=== PATIENT | female | born 1970 | race Caucasian/White ===

== ENCOUNTER 2016-09-26 12:49 | Emergency (ER) | payer MEDICARE, MEDICAID ==
[2016-09-26 13:00] VITALS: BP 150/79
[2016-09-26] MEDS ORDERED: diphenhydrAMINE 50 MG/ML SDV IM ONE (13:19)
[2016-09-26] MEDS ORDERED: Ketorolac 60 MG/2 ML SDV IM ONE (13:19)
--- NOTE | 2016-09-26 13:19 | EDM.PDOC ---
ED HPI HEADACHE COMPLAINT - General Chief Complaint: Headache Stated Complaint: Headache Time Seen by Provider: 09/26/16 13:10 Source of Information: Reports: Patient, RN notes reviewed History Limitations: Reports: No limitations - History of Present Illness INITIAL COMMENTS - FREE TEXT/NARRATIVE: 46 year old female presents to the ED today with chief complaint of headache since yesterday. The pain is rated 8/10. She has not taken any pain medications for the headache. She denies photophobia or phonophobia, nausea, vomiting, vision changes, dizziness, vertigo. She has a history of vertigo but says this is different. She feels a little lightheaded at times. She denies vertigo but says "I have to keep my eyes closed or I'll vommit." She reports a cough since yesterday and intermittent chills. No known fever or body aches. - Related Data Allergies/ADRs: Allergies Allergy/AdvReac Type Severity Reaction Status Date / Time No Known Allergies Allergy Verified 05/19/16 01:29 Home Meds: Home Meds Aspirin [Halfprin] 324 mg PO DAILY 05/20/14 [History] Lisinopril 10 mg PO DAILY 05/20/14 [History] Simvastatin [Zocor] 40 mg PO QPM 05/20/14 [History] Victoza. 1.8 mg SUBCUT DAILY 05/20/14 [History] metFORMIN [Glucophage] 1,000 mg PO BIDM 05/20/14 [History] Albuterol Sulfate [Albuterol Sulfate HFA] 2 puff INH Q4H PRN 08/24/14 [History] PARoxetine HCl [Paxil] 60 mg PO DAILY 07/27/15 [History] ALPRAZolam [Xanax] 0.5 mg PO QID PRN 04/06/16 [History] Lansoprazole [Prevacid] 30 mg PO QAM #30 capsule. 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: Musculoskeletal History: Reports: Back pain, chronic Psychiatric History: Reports: Anxiety, Depression Endocrine/Metabolic History: Reports: Diabetes, type II - Past Surgical History HEENT Surgical History: Reports: Tonsillectomy GI Surgical History: Reports: Appendectomy, Cholecystectomy Female Surgical History: Reports: section, Hysterectomy, Tubal ligation Neurological Surgical History: Reports: Lumbar spine Social & Family History - Tobacco Use Smoking Status *Q: Current Every Day Smoker Years of Tobacco use: 30 Packs/Tins Daily: 1 Used Tobacco, but Quit: No Second Hand Smoke Exposure: Yes - Caffeine Use Caffeine Use: Reports: None - Alcohol Use Days Per Week of Alcohol Use: 0 - Recreational Drug Use Recreational Drug Use: No - Living Situation & Occupation Living situation: Reports: , with spouse, with family (3 kids) Occupation: unemployed ED ROS GENERAL - Review of Systems Review Of Systems: See Below Constitutional: Reports: chills, malaise. Denies: fever HEENT: Reports: No symptoms. Denies: Vertigo, Vision change Respiratory: Reports: Cough. Denies: Shortness of Breath, Sputum Cardiovascular: Reports: Lightheadedness. Denies: Chest pain GI/Abdominal: Reports: No symptoms. Denies: Abdominal pain, Diarrhea, Nausea, Vomiting Neurological: Reports: Headache. Denies: Confusion, Dizziness, Numbness, Tingling, Weakness - Physical Exam Exam: See Below Exam Limited By: No limitations General Appearance: alert, WD/WN, mild distress Eye Exam: bilateral eye: EOMI, normal inspection, PERRL Throat/Mouth: Normal inspection, Normal oropharynx Head Exam: atraumatic, normocephalic Neck: normal inspection, supple, non-tender, full range of motion Respiratory/Chest: no respiratory distress, lungs clear Cardiovascular: normal peripheral pulses, regular rate, rhythm, no murmur Neuro Exam (Abbreviated): alert, oriented, CN II-XII intact, normal cognition, no motor/sensory deficits Skin Exam: Warm, Dry, Intact Course - Vital Signs Last Recorded V/S: Last Vital Signs Temp 99.1 F 09/26/16 12:58 Pulse 105 H 09/26/16 12:58 Resp 16 09/26/16 12:58 BP 150/79 H 09/26/16 12:58 Pulse Ox 94 L 09/26/16 12:58 Orthostatic Blood Pressure [ 126/92 Standing] Orthostatic Blood Pressure [ 146/88 Supine] - Orders/Labs/Meds Orders: Active Orders 24 hr Category Date Time Status Orthostatic Vital Signs [RC] ASDIRECTED Care 09/26/16 13:19 Active Meds: Medications Discontinued Medications Generic Name Dose Route Start Last Admin Trade Name Waleska PICKETT Reason Stop Dose Admin Diphenhydramine HCl 50 mg 09/26/16 13:19 09/26/16 13:36 Benadryl IM 09/26/16 13:20 50 mg ONETIME ONE Administration Hydromorphone HCl 0.5 mg 09/26/16 14:31 09/26/16 14:37 Dilaudid IM 09/26/16 14:32 0.5 mg ONETIME ONE Administration Ketorolac Tromethamine 60 mg 09/26/16 13:19 09/26/16 13:38 Toradol IM 09/26/16 13:20 60 mg ONETIME ONE Administration - Re-Assessments/Exams Free Text/Narrative Re-Assessment/Exam: Influenza screen is negative. Patient appears to have headache related to viral illness. She was instructed on supportive care. Neuro exam is normal and therefore imaging is not indicated at this time. Initial pain management included Toradol and Benadryl for the headache. She reported no relief in symptoms. She was then treated with 0.5mg of Dilaudid IM. She will be discharged home with viral illness supportive care instructions. Discharge instructions as documented. She has a family member here to drive her home. Departure - Departure Time of Disposition: 14:34 Disposition: Home, Self-Care 01 Condition: good Clinical Impression: Viral illness Headache Qualifiers: Headache type: unspecified Headache chronicity pattern: acute headache Intractability: not intractable Qualified Code(s): R51 - Headache Instructions: General Headache Without Cause Referrals: Nishi Farley PA-C [Primary Care Provider] - Forms: ED Department Discharge Additional Instructions: Drink plenty of fluids Tylenol 1000mg every 8 hours as needed for pain or fever Aleve 1 tab twice a day as needed for pain not relieved by Tylenol Return to ER with worsening of symptoms or additional concerns No driving today due to sedating medications given in the ED. - My Orders Last 24 Hours: My Active Orders 09/26/16 13:19 Orthostatic Vital Signs [RC] ASDIRECTED - Assessment/Plan Last 24 Hours: My Active Orders 09/26/16 13:19 Orthostatic Vital Signs [RC] ASDIRECTED
[2016-09-26] MEDS ORDERED: HYDROmorphone 0.5 MG/0.5 ML Syringe IM ONE (14:31)
== END 2016-09-26 14:50 | disposition home or self-care (01) ==
LOC: JD.ED 12:49
DX: R51 Headache (principal); B34.9 Viral infection, unspecified; Z79.82 Long term (current) use of aspirin; Z79.899 Other long term (current) drug therapy; E11.9 Type 2 diabetes mellitus without complications; Z79.84 Long term (current) use of oral hypoglycemic drugs; I10 Essential (primary) hypertension; E78.00 Pure hypercholesterolemia, unspecified; K21.9 Gastro-esophageal reflux disease without esophagitis; F32.9 Major depressive disorder, single episode, unspecified; F41.9 Anxiety disorder, unspecified; G89.29 Other chronic pain; M54.9 Dorsalgia, unspecified; F17.200 Nicotine dependence, unspecified, uncomplicated
CPT/HCPCS: 87804; 96372; 99284; J1170; J1200; J1885

== ENCOUNTER 2017-03-16 08:08 | Emergency (ER) | payer MEDICARE, MEDICAID ==
--- NOTE | 2017-03-16 08:20 | EDM.PDOC ---
ED HPI GENERAL MEDICAL PROBLEM - General Chief Complaint: Back Pain or Injury Stated Complaint: BACK PAIN Time Seen by Provider: 03/16/17 08:19 Source of Information: Reports: Patient History Limitations: Reports: No Limitations - History of Present Illness INITIAL COMMENTS - FREE TEXT/NARRATIVE: Patient states she has a history of diffuse low back pain related to degenerative disc and joint disease since 2009. He has had spinal fusion 1. Has had 2 previous surgeries on the lumbar spine I believe one was a laminectomy or kyphoplasty. Pain does not radiate below the Botox.. Pain is worse left upper mid back actually just inferior to her left shoulder blade. She has paraspinal muscle tenderness over T9-T10 rib heads on the left side. There is pain along the para spinal musculature all the way down to lumbar spine bilaterally. Previous noted well-healed midline L-spine surgical scar. Range of motion is severely limited. She can barely get on and off the bed without help. Pain may be all due to arthritic changes in the facet joints. She does not follow-up with chiropractor due to previous surgery. Recommended massage therapist although she really doesn't have the finances for this apparently. Onset: Other Onset Date: 03/11/17 Duration: Day(s): Location: Reports: Back (Mid and lower back.), Radiates to (Across the lower back worse on the left side as compared to the right. Is not radiate into the buttocks or lower extremities) Quality: Reports: Ache, Sharp, Stabbing, Throbbing Severity: Severe Improves with: Reports: None (Rates it 9 out of 10.), Rest Worsens with: Reports: Movement Context: Denies: Activity, Exercise, Lifting, Sick Contact, Trauma, Other ( Chronic low back pain with previous surgical management without success.) Associated Symptoms: Reports: Loss of Appetite, Malaise. Denies: Chest Pain, Cough, cough w sputum, Nausea/Vomiting, Rash, Seizure, Shortness of Breath Treatments ACID CLEANER: Reports: NSAIDS (Motrin 600 mg every 6 hours) Middle Back Pain Score (Numeric/FACES): 8 - Related Data Allergies Allergy/AdvReac Type Severity Reaction Status Date / Time No Known Allergies Allergy Verified 03/16/17 08:18 Home Meds: Home Meds Aspirin [Halfprin] 324 mg PO DAILY 05/20/14 [History] Lisinopril 10 mg PO DAILY 05/20/14 [History] Simvastatin [Zocor] 40 mg PO QPM 05/20/14 [History] Victoza. 1.8 mg SUBCUT DAILY 05/20/14 [History] metFORMIN [Glucophage] 1,000 mg PO BIDM 05/20/14 [History] Albuterol Sulfate [Albuterol Sulfate HFA] 2 puff INH Q4H PRN 08/24/14 [History] PARoxetine HCl [Paxil] 60 mg PO DAILY 07/27/15 [History] ALPRAZolam [Xanax] 0.5 mg PO QID PRN 04/06/16 [History] Lansoprazole [Prevacid] 30 mg PO QAM #30 capsule.dr 05/19/16 [Rx] oxyCODONE HCl/Acetaminophen [Percocet 5-325 mg Tablet] 1 - 2 each PO Q4H PRN # 20 tablet 03/16/17 [Rx] predniSONE [Deltasone] 20 mg PO ASDIRECTED #15 tablet 03/16/17 [Rx] Past Medical History HEENT History: Reports: Impaired Vision Other HEENT History: Wears glasses Cardiovascular History: Reports: High Cholesterol, Hypertension Respiratory History: Reports: Bronchitis, Recurrent, SOB 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 History: Reports: GERD 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: Musculoskeletal History: Reports: Back Pain, Chronic Psychiatric History: Reports: Anxiety, Depression Endocrine/Metabolic History: Reports: Diabetes, Type II - Past Surgical History Female Surgical History: Reports: Section, Hysterectomy, Tubal Ligation Neurological Surgical History: Reports: Lumbar Spine Social & Family History - Tobacco Use Smoking Status *Q: Current Every Day Smoker Years of Tobacco use: 30 Packs/Tins Daily: 1 Used Tobacco, but Quit: No Second Hand Smoke Exposure: Yes - Caffeine Use Caffeine Use: Reports: None - Alcohol Use Days Per Week of Alcohol Use: 0 - Recreational Drug Use Recreational Drug Use: No - Living Situation & Occupation Living situation: Reports: , (Spouse 3 weeks ago -- Feb 25-- from complications of leukemia.), with Spouse, with Family Occupation: Unemployed ED ROS GENERAL - Review of Systems Review Of Systems: See Below Constitutional: Reports: Malaise, Weakness, Fatigue, Decreased Appetite. Denies : Fever, Chills, Weight Loss (Not being able to sleep) HEENT: Reports: Glasses Respiratory: Reports: No Symptoms Cardiovascular: Reports: No Symptoms Endocrine: Reports: Fatigue, High Glucose (She is type II diabetic.) GI/Abdominal: Reports: No Symptoms, Constipation (Occasional problems with constipation) : Reports: Incontinence Musculoskeletal: Reports: Back Pain (Chronic diffuse low back pain with previous surgery 2.) Skin: Reports: No Symptoms (Stress and urge components) Neurological: Reports: No Symptoms, Difficulty Walking Psychiatric: Reports: No Symptoms Hematologic/Lymphatic: Reports: No Symptoms Immunologic: Reports: No Symptoms ED EXAM,LOWER BACK PAIN/INJURY - Physical Exam Exam: See Below Exam Limited By: No Limitations General Appearance: Alert, WD/WN, Moderate Distress Eye Exam: Bilateral Eye: Normal Inspection Ears: Normal External Exam Throat/Mouth: Normal Inspection Head: Atraumatic, Normocephalic Neck: Normal Inspection, Supple, Non-Tender, Full Range of Motion Respiratory/Chest: Lungs Clear, Normal Breath Sounds, Decreased Breath Sounds ( Decreased breath sounds of the lower 20% of lung linder.) Cardiovascular: Normal Peripheral Pulses, Regular Rate, Rhythm, No Edema, No Gallop, No Murmur GI/Abdominal: Normal Bowel Sounds, Soft, Non-Tender, No Organomegaly, No Abnormal Bruit, Other Back Exam: Normal Inspection, CVA Tenderness (L), CVA Tenderness (R), Decreased Range of Motion, Paraspinal Tenderness (Marked paraspinal muscle tenderness particularly on the left side and particularly over the ninth and 10th facet joints on the thoracic spine compatible with rib head subluxation. Tenderness paraspinally all the way down the lumbar spine). No: Full Range of Motion, Muscle Spasm Extremities: Normal Inspection ( particularly at L4-L5 facet joints bilaterally. Perhaps a little worse in the left as compared to the right.), Normal Range of Motion, Non-Tender, No Pedal Edema Neurological: Normal Mood/Affect, CN II-XII Intact, Normal Plantar Flexion, No Motor/Sensory Deficits, Oriented x 3, Straight Leg Raise (L), Straight Leg Raise (R) (40 bilaterally 40). No: Normal Gait, Babinski DTR - Lower Extremities: 0: Ankle (R), Ankle (L), 1+: Knee (R), Knee (L) Psychiatric: Normal Affect, Normal Mood Skin Exam: Warm, Dry, Intact, Normal Color, No Rash Course - Vital Signs Last Recorded V/S: Last Vital Signs Temp 35.8 C 03/16/17 08:18 Pulse 87 03/16/17 08:18 Resp 16 03/16/17 08:18 BP 148/90 H 03/16/17 08:18 Pulse Ox 96 03/16/17 08:18 - Orders/Labs/Meds Meds: Medications Discontinued Medications Generic Name Dose Route Start Last Admin Trade Name Waleska PRN Reason Stop Dose Admin Hydromorphone HCl 1 mg 03/16/17 08:33 Dilaudid IM 03/16/17 08:34 ONETIME ONE Promethazine HCl 25 mg 03/16/17 08:34 Phenergan IM 03/16/17 08:35 ONETIME ONE - Radiology Interpretation Free Text/Narrative:: 46-year-old female brought to the ED due to acute exacerbation of chronic low back pain. She has had previous lumbar spine surgery 2 with no improvement in her symptoms. She has degenerative disc disease as well as diffuse osteophytic changes and facet joints. She is currently using Motrin only for pain management. Can't report any specific incident that has aggravated her low back pain other than recent lot of traveling to the [facility] where spent had was being treated with 4 leukemia. The plan was for him to have a bone marrow transplant point of the leukemia never was fully eradicated. He on February 25. She is therefore in the grieving process as well. Current pain is left upper back particular of the ninth and 10th rib heads left side with minimal spur of spinal muscle spasm. There is tenderness paraspinally all the way down to the lumbar 5 vertebral bilaterally. Plan she'll be treated with an IM injection of Dilaudid 1 mg with Phenergan 25 mg IM for acute pain relief. Provided 20 tablets of Percocet 5/3/25 milligrams strength and placed her on short course of prednisone 20 mg a.m. and p.m. for 5 days and then once in the morning only for another 5 days. This will elevate her blood sugars and she is a type II diabetic and she was made aware of this. Departure - Departure Time of Disposition: 08:32 Disposition: Home, Self-Care 01 Condition: Fair Clinical Impression: Acute exacerbation of chronic low back pain - Discharge Information Prescriptions: oxyCODONE HCl/Acetaminophen [Percocet 5-325 mg Tablet] 1 - 2 each PO Q4H PRN # 20 tablet PRN Reason: pain relief. predniSONE [Deltasone] 20 mg PO ASDIRECTED #15 tablet Referrals: Nishi Farley PA-C [Primary Care Provider] - Forms: ED Department Discharge Additional Instructions: Evaluation in the emergency department today in regards to acute exacerbation of chronic low back pain. Reveals lumbar spine surgery 2 due to degenerative disc disease and arthritic changes. Pain starts in the mid left upper back and travels all the way down to the lumbar spine. Clinically you have a rib head out at 9 intense level on the left side. Minimal spur paraspinal muscle spasm throughout but marked tenderness. Treated in the emergency room with an intramuscular injection of Dilaudid 1 mg with Phenergan 25 mg IM. This is to relieve pain and muscle spasm. The Phenergan also works as an antinauseant to prevent any vomiting from the narcotic. Home to bed and sleep for 4-6 hours after the pain shot. May use Percocet 5/3/25 milligram tablets one or 2 every 4- 6 hours for pain relief after this. Continue Motrin or Aleve Aleve is 2 tablets every 8 hours versus Motrin 3 tablets every 6 hours for pain and anti- inflammatory relief. Suggest use of Prilosec or omeprazole 20 mg once daily to protect the stomach lining from the effect of these medications long-term. They can cause ulcerations. Also wrote a prescription today for Deltasone 20 mg which is to be taken with breakfast and supper for 5 days then 1 tablet in the morning only for another 5 days. Take the first one at suppertime tonight. This is to also reduce inflammation. This medication will raise her blood sugars transiently while taking it but they will return to normal after finishing up the Deltasone. Follow-up with her personal care physician by the end of the week to see how you're doing with her back pain.
[2017-03-16] MEDS ORDERED: HYDROmorphone 1 MG/ML Syringe IM ONE (08:33)
[2017-03-16] MEDS ORDERED: Promethazine 25 MG/ML SDV IM ONE (08:34)
[2017-03-16 09:03] VITALS: BP 135/81
== END 2017-03-16 08:51 | disposition home or self-care (01) ==
LOC: JD.ED 08:08
DX: M54.5 Low back pain (principal); E78.00 Pure hypercholesterolemia, unspecified; I10 Essential (primary) hypertension; K21.9 Gastro-esophageal reflux disease without esophagitis; F41.9 Anxiety disorder, unspecified; F17.210 Nicotine dependence, cigarettes, uncomplicated; F32.9 Major depressive disorder, single episode, unspecified; E11.9 Type 2 diabetes mellitus without complications; G89.29 Other chronic pain; Z79.84 Long term (current) use of oral hypoglycemic drugs; Z79.899 Other long term (current) drug therapy; Z79.82 Long term (current) use of aspirin; Z90.710 Acquired absence of both cervix and uterus
CPT/HCPCS: 96372; 99283; J1170; J2550

== ENCOUNTER 2017-03-20 22:10 | Emergency (ER) | payer MEDICARE, MEDICAID ==
[2017-03-20 22:22] VITALS: BP 156/90
--- NOTE | 2017-03-20 23:42 | EDM.PDOC ---
ED HPI GENERAL MEDICAL PROBLEM - General Chief Complaint: Neurological Problem Stated Complaint: R SIDE NUMBNESS Time Seen by Provider: 03/20/17 23:35 Source of Information: Reports: Patient, RN Notes Reviewed History Limitations: Reports: Other (Patient is hostile, answers most questions with one word) - History of Present Illness INITIAL COMMENTS - FREE TEXT/NARRATIVE: The patient states that she developed tingling of the right side of her face, her entire right upper extremity, and her entire right lower extremity around 21 :45 tonight as she was getting ready for bed. She denies weakness of her face or either extremity. She denies recent dyspnea, photophobia, phonophobia, visual changes, or headache. The patient reports similar symptoms a few years ago, affecting her left side. She states that she was diagnosed with a "mini stroke" and instructed to increase her aspirin. She states that her symptoms resolved about 24 hours later. Review of the medical records, however, indicates that the patient was seen by Elinor Dempsey on 07/19/2014 with a complaint of left hand and lips paresthesia. A CT scan of the head was performed, which was normal, and the patient was diagnosed with "paresthesia" not a TIA or mini stroke. She was instructed to take ibuprofen, and follow-up if her symptoms did not resolve. There is no mention of changing her aspirin dose. A subsequent MRI of the brain without and with gadolinium contrast was performed on 12/26/2014 per her PCP, Nishi Zamudio, for vertigo. This also returned entirely normal. Back Pain Score (Numeric/FACES): 7 - Related Data Allergies Allergy/AdvReac Type Severity Reaction Status Date / Time No Known Allergies Allergy Verified 03/20/17 22:16 Home Meds: Home Meds Aspirin [Halfprin] 324 mg PO DAILY 05/20/14 [History] Lisinopril 10 mg PO DAILY 05/20/14 [History] Simvastatin [Zocor] 40 mg PO QPM 05/20/14 [History] Victoza. 1.8 mg SUBCUT DAILY 05/20/14 [History] metFORMIN [Glucophage] 1,000 mg PO BIDM 05/20/14 [History] Albuterol Sulfate [Albuterol Sulfate HFA] 2 puff INH Q4H PRN 08/24/14 [History] PARoxetine HCl [Paxil] 60 mg PO DAILY 07/27/15 [History] ALPRAZolam [Xanax] 0.5 mg PO QID PRN 04/06/16 [History] Lansoprazole [Prevacid] 30 mg PO QAM #30 capsule. 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: Musculoskeletal History: Reports: Back Pain, Chronic Psychiatric History: Reports: Anxiety, Depression Endocrine/Metabolic History: Reports: Diabetes, Type II, Obesity/BMI 30+ - Past Surgical History HEENT Surgical History: Reports: Tonsillectomy GI Surgical History: Reports: Appendectomy, Cholecystectomy Female Surgical History: Reports: Section (x 2), Hysterectomy, Tubal Ligation Neurological Surgical History: Reports: Lumbar Spine (fusion, x 2) Social & Family History - Tobacco Use Smoking Status *Q: Current Every Day Smoker Years of Tobacco use: 30 Packs/Tins Daily: 1 Second Hand Smoke Exposure: Yes - Caffeine Use Caffeine Use: Reports: None - Alcohol Use Alcohol Use History: Yes Alcohol Use Frequency: Rarely - Recreational Drug Use Recreational Drug Use: No - Living Situation & Occupation Living situation: Reports: , with Spouse, with Family (3 kids) Occupation: Unemployed ED ROS GENERAL - Review of Systems Review Of Systems: See Below Constitutional: Reports: No Symptoms HEENT: Reports: No Symptoms Respiratory: Reports: No Symptoms Cardiovascular: Reports: No Symptoms Endocrine: Reports: No Symptoms GI/Abdominal: Reports: No Symptoms : Reports: No Symptoms Musculoskeletal: Reports: No Symptoms Skin: Reports: No Symptoms Neurological: Reports: No Symptoms Psychiatric: Reports: No Symptoms Hematologic/Lymphatic: Reports: No Symptoms Immunologic: Reports: No Symptoms ED EXAM, GENERAL - Physical Exam Exam: See Below Exam Limited By: No Limitations General Appearance: Alert, WD/WN, No Apparent Distress Eye Exam: Bilateral Eye: EOMI, Normal Inspection, PERRL Ears: Normal External Exam, Hearing Grossly Normal Nose: Normal Inspection, No Blood Throat/Mouth: Normal Inspection, Normal Lips, Normal Voice, No Airway Compromise Head: Atraumatic, Normocephalic Neck: Normal Inspection, Full Range of Motion Respiratory/Chest: No Respiratory Distress, Lungs Clear, Normal Breath Sounds, No Accessory Muscle Use Cardiovascular: Normal Peripheral Pulses, Regular Rate, Rhythm, No Gallop, No JVD, No Murmur, No Rub GI/Abdominal: Normal Bowel Sounds, Soft, No Organomegaly, No Distention, No Abnormal Bruit, No Mass, Tender (Generalized, nonfocal. The patient states that this is normal for her.) (Female) Exam: Deferred Rectal (Female) Exam: Deferred Back Exam: Normal Inspection, Full Range of Motion, NT Extremities: Normal Inspection, Normal Range of Motion, No Pedal Edema, Normal Capillary Refill Neurological: Alert, Oriented, Normal Cognition, Sensory/Motor Deficit (Patient reports decreased sensation to the entire right side of her face, including the forehead, her entire right upper extremity, and her entire right lower extremity. No weakness noted, including to the forehead or the muscles of mastication.) Psychiatric: Other (Hostile) Skin Exam: Warm, Dry, Intact, Normal Color, No Rash EKG INTERPRETATION EKG Date: 03/21/17 Time: 00:12 Rhythm: NSR Rate (Beats/Min): 73 Edmonds: Normal P-Wave: Present QRS: Normal ST-T: Normal QT: Normal Comparison: No Change (11/04/2015) Course - Vital Signs Last Recorded V/S: Last Vital Signs Temp 36.2 C 03/20/17 22:16 Pulse 80 03/20/17 22:16 Resp 28 H 03/20/17 22:16 BP 156/90 H 03/20/17 22:16 Pulse Ox 97 03/20/17 22:16 - Orders/Labs/Meds Orders: Active Orders 24 hr Category Date Time Status Head wo Cont [CT] Stat Exams 03/20/17 22:26 Taken EKG 12 Lead [EK] Stat Ther 03/21/17 00:02 Ordered Labs: Laboratory Tests 03/20/17 03/20/17 03/20/17 Range/Units 22:22 22:22 22:23 WBC 12.65 H (3.98-10.04) K/mm3 RBC 3.94 L (3.98-5.22) M/mm3 Hgb 13.0 (11.2-15.7) gm/L Hct 38.9 (34.1-44.9) % MCV 98.7 H (79.4-94.8) fl MCH 33.0 H (25.6-32.2) pg MCHC 33.4 (32.2-35.5) g/dl RDW Std Deviation 51.7 H (36.4-46.3) fL Plt Count 245 (182-369) K/mm3 MPV 10.6 (9.4-12.3) fl Neutrophils % (Manual) 62 H (40-60) % Band Neutrophils % 2 (0-10) % Lymphocytes % (Manual) 24 (20-40) % Atypical Lymphs % 0 % Monocytes % (Manual) 8 (2-10) % Eosinophils % (Manual) 4 (0.7-5.8) % Basophils % (Manual) 0 L (0.1-1.2) Platelet Estimate Adequate RBC Morph Comment Normal PT (8.0-13.0) SECONDS INR APTT (22-36) SECONDS Puncture Site ABG pH (7.35-7.45) ABG pCO2 (35.0-45.0) mmHg ABG pO2 (80.0-100.0) mmHg ABG HCO3 (22.0-26.0) meq/L ABG O2 Saturation (96.0-97.0) % ABG Base Excess (-2-2.0) Kam Test O2 Delivery Device FiO2 (21.00-100.00) % Sodium 141 (136-145) mEq/L Potassium 3.9 (3.5-5.1) mEq/L Chloride 104 (98-107) mEq/L Carbon Dioxide 30 (21-32) mEq/L Anion Gap 10.9 (5-15) BUN 24 H (7-18) mg/dL Creatinine 1.3 H (0.55-1.02) mg/dL Est Cr Clr Drug Dosing 44.25 mL/min Estimated GFR (MDRD) 44 (>60) mL/min BUN/Creatinine Ratio 18.5 H (14-18) Glucose 180 H (74-106) mg/dL POC Glucose 172 H (70-105) mg/dL Calcium 9.0 (8.5-10.1) mg/dL Total Bilirubin 0.2 (0.2-1.0) mg/dL AST 13 L (15-37) U/L ALT 25 (14-59) U/L Alkaline Phosphatase 64 (46-116) U/L Total Protein 6.8 (6.4-8.2) g/dl Albumin 3.4 (3.4-5.0) g/dl Globulin 3.4 gm/dL Albumin/Globulin Ratio 1.0 (1-2) Vitamin B12 (193-986) pg/ml Folate (8.6-58.9) ng/mL Urine Opiates Screen (NEGATIVE) Ur Buprenorphine Scrn (NEGATIVE) Ur Oxycodone Screen (NEGATIVE) Urine Methadone Screen (NEGATIVE) Ur Propoxyphene Screen (NEGATIVE) Ur Barbiturates Screen (NEGATIVE) Ur Tricyclics Screen (NEGATIVE) Ur Phencyclidine Scrn (NEGATIVE) Ur Amphetamine Screen (NEGATIVE) U Methamphetamines Scrn (NEGATIVE) U Benzodiazepines Scrn (NEGATIVE) U Cocaine Metab Screen (NEGATIVE) U Marijuana (THC) Screen (NEGATIVE) 03/20/17 03/20/17 03/20/17 Range/Units 22:23 22:23 23:59 WBC (3.98-10.04) K/mm3 RBC (3.98-5.22) M/mm3 Hgb (11.2-15.7) gm/L Hct (34.1-44.9) % MCV (79.4-94.8) fl MCH (25.6-32.2) pg MCHC (32.2-35.5) g/dl RDW Std Deviation (36.4-46.3) fL Plt Count (182-369) K/mm3 MPV (9.4-12.3) fl Neutrophils % (Manual) (40-60) % Band Neutrophils % (0-10) % Lymphocytes % (Manual) (20-40) % Atypical Lymphs % % Monocytes % (Manual) (2-10) % Eosinophils % (Manual) (0.7-5.8) % Basophils % (Manual) (0.1-1.2) Platelet Estimate RBC Morph Comment PT 11.2 (8.0-13.0) SECONDS INR 1.03 APTT 25 (22-36) SECONDS Puncture Site Lt radial ABG pH 7.41 (7.35-7.45) ABG pCO2 39.8 (35.0-45.0) mmHg ABG pO2 75.0 L (80.0-100.0) mmHg ABG HCO3 24.7 (22.0-26.0) meq/L ABG O2 Saturation 96.2 (96.0-97.0) % ABG Base Excess 0.7 (-2-2.0) Kam Test Positive O2 Delivery Device Room air FiO2 0.00 L (21.00-100.00) % Sodium (136-145) mEq/L Potassium (3.5-5.1) mEq/L Chloride (98-107) mEq/L Carbon Dioxide (21-32) mEq/L Anion Gap (5-15) BUN (7-18) mg/dL Creatinine (0.55-1.02) mg/dL Est Cr Clr Drug Dosing mL/min Estimated GFR (MDRD) (>60) mL/min BUN/Creatinine Ratio (14-18) Glucose (74-106) mg/dL POC Glucose (70-105) mg/dL Calcium (8.5-10.1) mg/dL Total Bilirubin (0.2-1.0) mg/dL AST (15-37) U/L ALT (14-59) U/L Alkaline Phosphatase (46-116) U/L Total Protein (6.4-8.2) g/dl Albumin (3.4-5.0) g/dl Globulin gm/dL Albumin/Globulin Ratio (1-2) Vitamin B12 1116 H (193-986) pg/ml Folate 16.9 (8.6-58.9) ng/mL Urine Opiates Screen (NEGATIVE) Ur Buprenorphine Scrn (NEGATIVE) Ur Oxycodone Screen (NEGATIVE) Urine Methadone Screen (NEGATIVE) Ur Propoxyphene Screen (NEGATIVE) Ur Barbiturates Screen (NEGATIVE) Ur Tricyclics Screen (NEGATIVE) Ur Phencyclidine Scrn (NEGATIVE) Ur Amphetamine Screen (NEGATIVE) U Methamphetamines Scrn (NEGATIVE) U Benzodiazepines Scrn (NEGATIVE) U Cocaine Metab Screen (NEGATIVE) U Marijuana (THC) Screen (NEGATIVE) 03/21/17 Range/Units 01:21 WBC (3.98-10.04) K/mm3 RBC (3.98-5.22) M/mm3 Hgb (11.2-15.7) gm/L Hct (34.1-44.9) % MCV (79.4-94.8) fl MCH (25.6-32.2) pg MCHC (32.2-35.5) g/dl RDW Std Deviation (36.4-46.3) fL Plt Count (182-369) K/mm3 MPV (9.4-12.3) fl Neutrophils % (Manual) (40-60) % Band Neutrophils % (0-10) % Lymphocytes % (Manual) (20-40) % Atypical Lymphs % % Monocytes % (Manual) (2-10) % Eosinophils % (Manual) (0.7-5.8) % Basophils % (Manual) (0.1-1.2) Platelet Estimate RBC Morph Comment PT (8.0-13.0) SECONDS INR APTT (22-36) SECONDS Puncture Site ABG pH (7.35-7.45) ABG pCO2 (35.0-45.0) mmHg ABG pO2 (80.0-100.0) mmHg ABG HCO3 (22.0-26.0) meq/L ABG O2 Saturation (96.0-97.0) % ABG Base Excess (-2-2.0) Kam Test O2 Delivery Device FiO2 (21.00-100.00) % Sodium (136-145) mEq/L Potassium (3.5-5.1) mEq/L Chloride (98-107) mEq/L Carbon Dioxide (21-32) mEq/L Anion Gap (5-15) BUN (7-18) mg/dL Creatinine (0.55-1.02) mg/dL Est Cr Clr Drug Dosing mL/min Estimated GFR (MDRD) (>60) mL/min BUN/Creatinine Ratio (14-18) Glucose (74-106) mg/dL POC Glucose (70-105) mg/dL Calcium (8.5-10.1) mg/dL Total Bilirubin (0.2-1.0) mg/dL AST (15-37) U/L ALT (14-59) U/L Alkaline Phosphatase (46-116) U/L Total Protein (6.4-8.2) g/dl Albumin (3.4-5.0) g/dl Globulin gm/dL Albumin/Globulin Ratio (1-2) Vitamin B12 (193-986) pg/ml Folate (8.6-58.9) ng/mL Urine Opiates Screen Negative (NEGATIVE) Ur Buprenorphine Scrn Negative (NEGATIVE) Ur Oxycodone Screen Presumptive positive H (NEGATIVE) Urine Methadone Screen Negative (NEGATIVE) Ur Propoxyphene Screen Negative (NEGATIVE) Ur Barbiturates Screen Negative (NEGATIVE) Ur Tricyclics Screen Negative (NEGATIVE) Ur Phencyclidine Scrn Negative (NEGATIVE) Ur Amphetamine Screen Negative (NEGATIVE) U Methamphetamines Scrn Negative (NEGATIVE) U Benzodiazepines Scrn Negative (NEGATIVE) U Cocaine Metab Screen Negative (NEGATIVE) U Marijuana (THC) Screen Negative (NEGATIVE) - Re-Assessments/Exams Free Text/Narrative Re-Assessment/Exam: 03/20/17 22:52 CT of the head without contrast is read by [facility] as "Normal head/ brain CT." 03/21/17 02:[address] Caldwell, Neurologist at [facility], at 02: 47. He states unequivocally that this is not a TIA. He states that this could be due to anxiety or some other issue, but it is not a TIA. He recommended that the patient discontinue smoking. The above was explained to the patient, who appears to understand. The patient' s B12 level is elevated at 1116, and excess B12 can cause paresthesias, however , I would expect that in order to cause paresthesias, the B12 level would have to be several fold higher than her current level. Because of her paresthesias, therefore, is not known, but I would expect it to resolve within 24 hours as it did back on 07/19/2014. Departure - Departure Time of Disposition: 02:57 Disposition: Home, Self-Care 01 Condition: Good Clinical Impression: Paresthesia - Discharge Information Referrals: Nishi Farley PA-C [Primary Care Provider] - Forms: ED Department Discharge Additional Instructions: You were seen in the emergency room for tingling of the right side of your mouth and face, your right upper extremity, and your right lower extremity. Workup in the ER included blood work, an arterial blood gas, a urine drug screen , an ECG, and a CT scan of your head. Your entire workup was unremarkable, and does not explain the cause of your symptoms. Your case was discussed with the Neurologist Dr. Caldwell. He confirmed that you are not suffering from a TIA, or "mini stroke". He recommended that you discontinue smoking. If your symptoms persist, please follow-up with your PCP, Nishi Zamudio. If any other problems, please do not hesitate to return to the ER. - My Orders Last 24 Hours: My Active Orders 03/20/17 22:26 Head wo Cont [CT] Stat 03/21/17 00:02 EKG 12 Lead [EK] Stat - Assessment/Plan Last 24 Hours: My Active Orders 03/20/17 22:26 Head wo Cont [CT] Stat 03/21/17 00:02 EKG 12 Lead [EK] Stat
--- NOTE | 2017-03-21 07:06 | CT ---
Head CT Technique: Multiple axial sections through the brain were obtained. Intravenous contrast was not utilized. Comparison: Previous head CT study of 07/19/14 and MRI brain of 12/26/14. Findings: Ventricles along with basal cisterns and sulci over the convexities are within normal limits for the patient's age. No abnormal parenchymal densities are seen. No evidence of intracranial hemorrhage. No midline shift or mass effect is seen. Bone window settings were reviewed which show no discrete calvarial abnormality. Visualized sinuses show minimal mucosal thickening within the ethmoid sinuses which is felt to be incidental. Impression: 1. Minimal mucosal thickening within the sphenoid sinus which is felt to be incidental. 2. No acute intracranial abnormality is identified. Diagnostic code #2 I agree with preliminary report issued by [facility] ([facility] preliminary report dictated on 03/20/17, 11:39 PM Central Time)
== END 2017-03-21 03:19 | disposition home or self-care (01) ==
LOC: JD.ED 22:10
DX: R20.2 Paresthesia of skin (principal); I10 Essential (primary) hypertension; K21.9 Gastro-esophageal reflux disease without esophagitis; E11.9 Type 2 diabetes mellitus without complications; E66.9 Obesity, unspecified; F17.210 Nicotine dependence, cigarettes, uncomplicated; Z79.82 Long term (current) use of aspirin; Z79.84 Long term (current) use of oral hypoglycemic drugs; Z79.899 Other long term (current) drug therapy; Z68.36 Body mass index [BMI] 36.0-36.9, adult
CPT/HCPCS: 36415; 36600; 70450; 70450-26; 80053; 80306; 82607; 82746; 82803; 82962; 85025; 85610; 85730; 93005; 99284; 99284-25

== ENCOUNTER 2017-05-11 12:11 | Emergency (ER) | payer MEDICARE, MEDICAID ==
[2017-05-11 12:32] VITALS: BP 133/94
[2017-05-11] MEDS ORDERED: Alum Hydrox/Mag Hydrox/Simeth 30 ML, Lidocaine 2% 15 ML PO ONE ×2 (13:05)
[2017-05-11] MEDS ORDERED: Pantoprazole 40 MG Tab.CR PO ONE (13:05)
[2017-05-11] MEDS ORDERED: Ondansetron 4 MG Tab.DIS PO ONE (13:05)
--- NOTE | 2017-05-11 13:10 | EDM.PDOC ---
ED HPI GENERAL MEDICAL PROBLEM - General Chief Complaint: 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 Problem Stated Complaint: VOMITING Time Seen by Provider: 05/11/17 12:51 Source of Information: Reports: Patient History Limitations: Reports: No Limitations - History of Present Illness INITIAL COMMENTS - FREE TEXT/NARRATIVE: Patient is a 46-year-old female who presents to the ED complaining of nausea, vomiting, and diarrhea. Patient states it started approximately 10:00 this morning. She's had 3 episodes of emesis and has now developed burning sensation to her epigastric region. She does have a history of GERD. In addition she's had 3 episodes of diarrhea. Continues to feel nauseated with admission to the ED. Has not been able to keep any liquids or foods down. Does not complain of being dizzy with walking. Denies any chest pain, shortness breath, fever/chills , dysuria, or any additional complaints. She has no history of pancreatitis and/ or chronic alcohol use. Denies recent sick exposures or ingestion of bad or questionable food. Patient believes she has a GI bug. Abdomen Pain Score (Numeric/FACES): 5 - Related Data Allergies Allergy/AdvReac Type Severity Reaction Status Date / Time No Known Allergies Allergy Verified 03/20/17 22:16 Home Meds: Home Meds Aspirin [Halfprin] 324 mg PO DAILY 05/20/14 [History] Lisinopril 10 mg PO DAILY 05/20/14 [History] Simvastatin [Zocor] 40 mg PO QPM 05/20/14 [History] Victoza. 1.8 mg SUBCUT DAILY 05/20/14 [History] metFORMIN [Glucophage] 1,000 mg PO BIDM 05/20/14 [History] Albuterol Sulfate [Albuterol Sulfate HFA] 2 puff INH Q4H PRN 08/24/14 [History] PARoxetine HCl [Paxil] 60 mg PO DAILY 07/27/15 [History] ALPRAZolam [Xanax] 0.5 mg PO QID PRN 04/06/16 [History] Gabapentin [Neurontin] 300 mg PO BID 05/11/17 [History] Hydrocodone/Acetaminophen [Hydrocodon-Acetaminophen 5-325] 5 - 325 mg PO Q6H PRN 05/11/17 [History] buPROPion [Wellbutrin XL] 150 mg PO DAILY 05/11/17 [History] Past Medical History HEENT History: Reports: Impaired Vision Other HEENT History: Wears glasses Cardiovascular History: Reports: High Cholesterol, Hypertension Respiratory History: Reports: Bronchitis, Recurrent, SOB 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 History: Reports: GERD [employer]ER History: 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: Musculoskeletal History: Reports: Back Pain, Chronic Psychiatric History: Reports: Anxiety, Depression Endocrine/Metabolic History: Reports: Diabetes, Type II, Obesity/BMI 30+ - Past Surgical History HEENT Surgical History: Reports: Tonsillectomy GI Surgical History: Reports: Appendectomy, Cholecystectomy Female Surgical History: Reports: Section, Hysterectomy, Tubal Ligation Neurological Surgical History: Reports: Lumbar Spine Social & Family History - Tobacco Use Smoking Status *Q: Current Every Day Smoker Years of Tobacco use: 30 Packs/Tins Daily: 0.5 Used Tobacco, but Quit: No Second Hand Smoke Exposure: Yes - Caffeine Use Caffeine Use: Reports: Soda, Tea - Alcohol Use Days Per Week of Alcohol Use: 0 - Recreational Drug Use Recreational Drug Use: No - Living Situation & Occupation Living situation: Reports: , with Spouse, with Family (3 kids) Occupation: Unemployed ED ROS GENERAL - Review of Systems Review Of Systems: ROS reveals no pertinent complaints other than HPI. ED EXAM, GI/ABD - Physical Exam Exam: See Below Exam Limited By: No Limitations General Appearance: Alert, WD/WN, No Apparent Distress Ears: Hearing Grossly Normal Nose: Normal Inspection Throat/Mouth: Normal Inspection, Normal Oropharynx, Normal Voice, No Airway Compromise, Other (Moist mucosa) Neck: Normal Inspection, Supple Respiratory/Chest: No Respiratory Distress, Lungs Clear, Normal Breath Sounds, No Accessory Muscle Use, Chest Non-Tender Cardiovascular: Normal Peripheral Pulses, Regular Rate, Rhythm GI/Abdominal Exam: Normal Bowel Sounds, Soft, No Organomegaly, No Distention, Tender (Mild tenderness noted epigastric region.) Back Exam: Normal Inspection. No: CVA Tenderness (L), CVA Tenderness (R) Neurological: Alert, Oriented, Normal Cognition Psychiatric: Normal Affect, Normal Mood Skin Exam: Warm, Dry, Intact Course - Vital Signs Last Recorded V/S: Last Vital Signs Temp 96.3 F 05/11/17 12:31 Pulse 109 H 05/11/17 12:31 Resp 20 05/11/17 12:31 BP 133/94 H 05/11/17 12:31 Pulse Ox 96 05/11/17 12:31 - Orders/Labs/Meds Meds: Medications Discontinued Medications Generic Name Dose Route Start Last Admin Trade Name Waleska PRN Reason Stop Dose Admin Al Hydroxide/Mg Hydroxide 30 0 ml 05/11/17 13:05 05/11/17 13:21 ml/ Lidocaine HCl 15 ml PO 05/11/17 13:06 45 ml ONETIME ONE Administration Ondansetron HCl 4 mg 05/11/17 13:05 05/11/17 13:21 Zofran Odt PO 05/11/17 13:06 4 mg ONETIME ONE Administration Pantoprazole Sodium 40 mg 05/12/17 13:05 Protonix PO 05/12/17 13:06 ONETIME ONE Pantoprazole Sodium 40 mg 05/11/17 13:05 05/11/17 13:47 Protonix PO 05/11/17 13:06 40 mg ONETIME ONE Administration - Re-Assessments/Exams Free Text/Narrative Re-Assessment/Exam: Ordered Zofran 4 mg ODT, GI cocktail, and Protonix. Patient does not appear to be dehydrated. Pain is minimal at this point. She has no other concerning findings on examination. History consistent for gastroenteritis. Patient is okay with this and agrees with plan. 05/11/17 13:10 05/11/17 14:22 Reassessment, patients states n/v has subsided. Continues to have acid reflux. She has been able to sip on small amounts of liquid with no issues. She is ready to be discharged home. Departure - Departure Time of Disposition: 14:37 Disposition: Home, Self-Care 01 Condition: Good Clinical Impression: Gastroenteritis Acid reflux Qualifiers: Esophagitis presence: esophagitis presence not specified Qualified Code(s): K21.9 - Gastro-esophageal reflux disease without esophagitis Gastritis Qualifiers: Gastritis type: unspecified gastritis Chronicity: acute Gastritis bleeding: presence of bleeding unspecified Qualified Code(s): K29.00 - Acute gastritis without bleeding - Discharge Information Instructions: Viral Gastroenteritis, Adult, [id number], Heartburn, Nausea and Vomiting, Adult, [id number] Referrals: Isela Liao, DREDGE DECKHAND [Primary Care Provider] - Forms: ED Department Discharge Additional Instructions: As discussed most likely etiology current complaint is gastroenteritis which is a viral infection and will run its course over the next few days. Treatment is symptomatic care including Zofran 4 mg every 6 hours for nausea and vomiting. Prilosec 40 mg every a.m. for the next 2 weeks for acid reflux. If having increased acid reflux symptoms during the day can also utilize Maalox following ornament maker hand instructions for dosing. Can also take Zantac 150 mg at at bedtime. Sip on small amounts of liquids such as Pedialyte, Gatorade, Powerade more frequently during the today. Do not eat anything for the next 12-24 hours. Advance to a bland diet thereafter. If no issues after bland diet for 24 hrs advance to a normal diet. Ensure adequate rest push the fluids and follow-up with PCP as needed. Return to the ED for any new or worsening symptoms.
[2017-05-12] MEDS ORDERED: Pantoprazole 40 MG Tab.CR PO ONE (13:05)
== END 2017-05-11 14:53 | disposition home or self-care (01) ==
LOC: JD.ED 12:11
DX: K52.9 Noninfective gastroenteritis and colitis, unspecified (principal); K21.9 Gastro-esophageal reflux disease without esophagitis; K29.00 Acute gastritis without bleeding; I10 Essential (primary) hypertension; F17.210 Nicotine dependence, cigarettes, uncomplicated; E78.00 Pure hypercholesterolemia, unspecified; Z79.84 Long term (current) use of oral hypoglycemic drugs; Z79.899 Other long term (current) drug therapy; Z79.82 Long term (current) use of aspirin
CPT/HCPCS: 99284; A9270; 99283

== ENCOUNTER 2018-01-15 21:22 | Emergency (ER) | payer MEDICARE, MEDICAID ==
[2018-01-15 21:30] VITALS: BP 103/75
[2018-01-15] MEDS ORDERED: Ketorolac 60 MG/2 ML SDV IM ONE (22:11)
[2018-01-15] MEDS ORDERED: HYDROmorphone 0.5 MG/0.5 ML SYRINGE IM ONE (22:12)
--- NOTE | 2018-01-15 22:24 | EDM.PDOC ---
ED HPI GENERAL MEDICAL PROBLEM - General Chief Complaint: Back Pain or Injury Stated Complaint: back pain Time Seen by Provider: 01/15/18 21:25 Source of Information: Reports: Patient, RN Notes Reviewed - History of Present Illness INITIAL COMMENTS - FREE TEXT/NARRATIVE: 47 year old female with severe low back pain today. She does have chronic low back pain, worse than usual today, this evening. Pain is in low back, does not radiate. No voiding sx. Pain is similar to what she has had in the past, just more severe. No abd pain, nausea or vomiting. Lower Back Pain Score (Numeric/FACES): 8 - Related Data Allergies Allergy/AdvReac Type Severity Reaction Status Date / Time No Known Allergies Allergy Verified 03/20/17 22:16 Home Meds: Home Meds Aspirin [Halfprin] 324 mg PO DAILY 05/20/14 [History] Lisinopril 10 mg PO DAILY 05/20/14 [History] Simvastatin [Zocor] 40 mg PO QPM 05/20/14 [History] Victoza. 1.8 mg SUBCUT DAILY 05/20/14 [History] metFORMIN [Glucophage] 1,000 mg PO BIDM 05/20/14 [History] Albuterol Sulfate [Albuterol Sulfate HFA] 2 puff INH Q4H PRN 08/24/14 [History] PARoxetine HCl [Paxil] 60 mg PO DAILY 07/27/15 [History] ALPRAZolam [Xanax] 0.5 mg PO QID PRN 04/06/16 [History] Gabapentin [Neurontin] 300 mg PO BID 05/11/17 [History] Hydrocodone/Acetaminophen [Hydrocodon-Acetaminophen 5-325] 5 - 325 mg PO Q6H PRN 05/11/17 [History] buPROPion [Wellbutrin XL] 150 mg PO DAILY 05/11/17 [History] Acetaminophen/HYDROcodone [[place] 325-5 MG] 1 tab PO Q6H PRN #14 tablet 01/15/18 [Rx] Past Medical History HEENT History: Reports: Impaired Vision Other HEENT History: Wears glasses Cardiovascular History: Reports: High Cholesterol, Hypertension Respiratory History: Reports: Bronchitis, Recurrent, SOB 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 History: Reports: GERD 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: Musculoskeletal History: Reports: Back Pain, Chronic Psychiatric History: Reports: Anxiety, Depression Endocrine/Metabolic History: Reports: Diabetes, Type II, Obesity/BMI 30+ - Past Surgical History HEENT Surgical History: Reports: Tonsillectomy GI Surgical History: Reports: Appendectomy, Cholecystectomy Female Surgical History: Reports: Section, Hysterectomy, Tubal Ligation Neurological Surgical History: Reports: Lumbar Spine Social & Family History - Tobacco Use Smoking Status *Q: Current Every Day Smoker Years of Tobacco use: 1 Packs/Tins Daily: 30 - Caffeine Use Caffeine Use: Reports: Soda, Tea - Recreational Drug Use Recreational Drug Use: No - Living Situation & Occupation Living situation: Reports: , with Spouse, with Family (3 kids) Occupation: Unemployed ED ROS GENERAL - Review of Systems Review Of Systems: See Below Constitutional: Denies: Fever, Chills, Diaphoresis HEENT: Reports: No Symptoms Respiratory: Denies: Shortness of Breath Cardiovascular: Denies: Chest Pain GI/Abdominal: Denies: Abdominal Pain, Nausea, Vomiting : Reports: No Symptoms Musculoskeletal: Reports: Back Pain Skin: Reports: No Symptoms Neurological: Denies: Numbness, Tingling, Weakness ED EXAM,LOWER BACK PAIN/INJURY - Physical Exam Exam: See Below General Appearance: Alert, Moderate Distress Throat/Mouth: Normal Inspection Head: Atraumatic Neck: Supple Respiratory/Chest: No Respiratory Distress, Lungs Clear Cardiovascular: Regular Rate, Rhythm GI/Abdominal: Soft, Non-Tender Back Exam: Paraspinal Tenderness (R low back) Extremities: Normal Inspection, Normal Range of Motion. No: Pedal Edema, Leg Pain Course - Vital Signs Last Recorded V/S: Last Vital Signs Temp 98.0 F 01/15/18 21:28 Pulse 94 01/15/18 21:28 Resp 18 01/15/18 21:28 BP 103/75 01/15/18 21:28 Pulse Ox 99 01/15/18 21:28 - Orders/Labs/Meds Meds: Medications Discontinued Medications Generic Name Dose Route Start Last Admin Trade Name [place] PRN Reason Stop Dose Admin Hydromorphone HCl 1 mg 01/15/18 22:12 01/15/18 22:23 Dilaudid IM 01/15/18 22:13 1 mg ONETIME ONE Administration Ketorolac Tromethamine 60 mg 01/15/18 22:11 01/15/18 22:22 Toradol IM 01/15/18 22:12 60 mg ONETIME ONE Administration - Re-Assessments/Exams Free Text/Narrative Re-Assessment/Exam: 01/15/18 22:24 when considering options for treatment she states "nothing works but morphine or dilaudid" Very opposed to treating this with oral meds yet she has taken nothing today OTC or otherwise to help her discomfort. Will treat with dilaudid 1 mg IM, torodol 60 mg IM. 01/15/18 22:41. When I suggested PT she states "I have been doing that". Discharge instr. as documented. Departure - Departure Time of Disposition: 22:31 Disposition: Home, Self-Care 01 Condition: Fair Clinical Impression: Back pain Qualifiers: Back pain location: low back pain Chronicity: chronic Back pain laterality: midline Sciatica presence: without sciatica Qualified Code(s): M54.5 - Low back pain - Discharge Information Prescriptions: Acetaminophen/HYDROcodone [[place] 325-5 MG] 1 tab PO Q6H PRN #14 tablet PRN Reason: Pain Instructions: Back Pain, Adult Referrals: Isela Liao RADIOISOTOPE PRODUCTION OPERATOR [Primary Care Provider] - Forms: ED Department Discharge Additional Instructions: rest back, avoid heavy lifting, alternate heat and ice as needed. You may alternate tylenol and advil or ibuprofen for back pain or take hydrocodone if needed for severe pain. Do not take tylenol and hydrocodone at the same time. Do not drive when taking hydrocodone. Follow up clinic if not much better within 3 to 5 days as expected.
== END 2018-01-15 22:40 | disposition home or self-care (01) ==
LOC: JD.ED 21:22
DX: G89.29 Other chronic pain (principal); M54.5 Low back pain; F17.210 Nicotine dependence, cigarettes, uncomplicated; I10 Essential (primary) hypertension; E11.9 Type 2 diabetes mellitus without complications; F41.9 Anxiety disorder, unspecified; F32.9 Major depressive disorder, single episode, unspecified; E78.00 Pure hypercholesterolemia, unspecified; Z79.899 Other long term (current) drug therapy; Z79.82 Long term (current) use of aspirin
CPT/HCPCS: 96372; 99283; J1170; J1885

== ENCOUNTER 2018-01-20 19:28 | Emergency (ER) | payer MEDICARE, MEDICAID ==
[2018-01-20 19:39] VITALS: BP 115/73
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
== END 2018-01-20 20:10 | disposition left against medical advice (07) ==
LOC: JD.ED 19:28
DX: S91.122A Laceration with foreign body of left great toe without damage to nail, initial encounter (principal); I10 Essential (primary) hypertension; E11.9 Type 2 diabetes mellitus without complications; E66.9 Obesity, unspecified; F17.210 Nicotine dependence, cigarettes, uncomplicated; Z79.82 Long term (current) use of aspirin; W22.8XXA Striking against or struck by other objects, initial encounter; Z79.899 Other long term (current) drug therapy; Z76.5 Malingerer [conscious simulation]
CPT/HCPCS: 99283

== ENCOUNTER 2018-08-17 13:10 | Emergency (ER) | payer MEDICARE, MEDICAID ==
[2018-08-17 13:22] VITALS: BP 117/78
[2018-08-17] MEDS ORDERED: Ketorolac 30 MG/ML SDV IVPUSH ONE (14:25)
--- NOTE | 2018-08-17 14:31 | EDM.PDOC ---
ED HPI GENERAL MEDICAL PROBLEM - General Chief Complaint: Chest Pain Stated Complaint: CHEST PAIN Time Seen by Provider: 08/17/18 13:53 Source of Information: Reports: Patient, RN Notes Reviewed History Limitations: Reports: No Limitations - History of Present Illness INITIAL COMMENTS - FREE TEXT/NARRATIVE: Patient is a 48 year old female who presents to the ED for the evaluation of chest pain. She states that she was just watching TV, when she felt a sudden intense chest pain located in her middle left chest. She states that she has felt this pain in the past, but not this intense. She denies any shortness of breath, sweating, left arm pain or jaw pain. She notes that she is doctoring for left shoulder pain, but states that she did not move her arm in a way that would have aggravated this today. She further denies any other type of trauma that would have caused the pain. She would rate it at an 8/10. She has not been feeling ill lately, nor has she been around any sick contacts. She did not take any type of medications for this, nor can she relate anything that makes this feel better. Left Chest Pain Score (Numeric/FACES): 8 - Related Data Allergies Allergy/AdvReac Type Severity Reaction Status Date / Time No Known Allergies Allergy Verified 06/19/18 11:41 Home Meds: Home Meds Aspirin [Halfprin] 324 mg PO DAILY 05/20/14 [History] Lisinopril 10 mg PO DAILY 05/20/14 [History] Simvastatin [Zocor] 40 mg PO QPM 05/20/14 [History] Victoza. 1.8 mg SUBCUT DAILY 05/20/14 [History] metFORMIN [Glucophage] 1,000 mg PO BIDM 05/20/14 [History] Albuterol Sulfate [Albuterol Sulfate HFA] 2 puff INH Q4H PRN 08/24/14 [History] PARoxetine HCl [Paxil] 60 mg PO DAILY 07/27/15 [History] ALPRAZolam [Xanax] 0.5 mg PO QID PRN 04/06/16 [History] Gabapentin [Neurontin] 300 mg PO BID 05/11/17 [History] Hydrocodone/Acetaminophen [Hydrocodon-Acetaminophen 5-325] 5 - 325 mg PO Q6H PRN 05/11/17 [History] buPROPion [Wellbutrin XL] 150 mg PO DAILY 05/11/17 [History] Acetaminophen/HYDROcodone [[place] 325-5 MG] 1 tab PO Q6H PRN #14 tablet 01/15/18 [Rx] Polymyxin B Sulf/Trimethoprim [Polytrim Eye Drops] 10 ml OP QID 5 Days #1 bottle 06/19/18 [Rx] cephALEXin [Keflex] 500 mg PO BID #14 cap 06/19/18 [Rx] Past Medical History HEENT History: Reports: Impaired Vision Other HEENT History: Wears glasses Cardiovascular History: Reports: High Cholesterol, Hypertension Respiratory History: Reports: Bronchitis, Recurrent, SOB 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 History: Reports: GERD 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: Musculoskeletal History: Reports: Back Pain, Chronic Psychiatric History: Reports: Anxiety, Depression Endocrine/Metabolic History: Reports: Diabetes, Type II, Obesity/BMI 30+ - Past Surgical History HEENT Surgical History: Reports: Tonsillectomy GI Surgical History: Reports: Appendectomy, Cholecystectomy Female Surgical History: Reports: Section, Hysterectomy, Tubal Ligation Neurological Surgical History: Reports: Lumbar Spine Social & Family History - Family History Family Medical History: Noncontributory - Tobacco Use Smoking Status *Q: Current Every Day Smoker Years of Tobacco use: 30 Packs/Tins Daily: 1 - Caffeine Use Caffeine Use: Reports: Coffee, Soda - Recreational Drug Use Recreational Drug Use: Yes Drug Use in Last 12 Months: No - Living Situation & Occupation Living situation: Reports: , with Spouse, with Family (3 kids) Occupation: Unemployed ED ROS GENERAL - Review of Systems Review Of Systems: See Below Constitutional: Denies: Fever, Chills, Weakness HEENT: Denies: Vertigo, Vision Change Respiratory: Denies: Shortness of Breath, Cough Cardiovascular: Reports: Chest Pain. Denies: Lightheadedness, Syncope Endocrine: Reports: No Symptoms GI/Abdominal: Reports: No Symptoms : Reports: No Symptoms Musculoskeletal: Reports: No Symptoms Skin: Reports: No Symptoms Neurological: Reports: No Symptoms Psychiatric: Reports: No Symptoms Hematologic/Lymphatic: Reports: No Symptoms Immunologic: Reports: No Symptoms ED EXAM, GENERAL - Physical Exam Exam: See Below Exam Limited By: No Limitations General Appearance: Alert, WD/WN, No Apparent Distress Eye Exam: Bilateral Eye: EOMI, Normal Inspection, PERRL Ears: Normal External Exam Nose: Normal Inspection Throat/Mouth: Normal Inspection, Normal Lips, Normal Teeth, Normal Oropharynx, Normal Voice, No Airway Compromise Head: Atraumatic, Normocephalic Neck: Normal Inspection, Supple, Non-Tender, Full Range of Motion Respiratory/Chest: No Respiratory Distress, Lungs Clear, Normal Breath Sounds, No Accessory Muscle Use, Other (Upon palpation, her chest is tender on the Medial left chest around the 4-5 rib area, this does mostly reproduce her pain) Cardiovascular: Normal Peripheral Pulses, Regular Rate, Rhythm, No Edema, No Murmur GI/Abdominal: Normal Bowel Sounds, Soft, Non-Tender, No Distention Back Exam: Normal Inspection, Full Range of Motion Extremities: Normal Inspection, Normal Range of Motion, Non-Tender, No Pedal Edema, Normal Capillary Refill Neurological: Alert, Oriented, Normal Cognition, No Motor/Sensory Deficits Psychiatric: Normal Affect, Normal Mood Skin Exam: Warm, Dry, Intact, Normal Color, No Rash EKG INTERPRETATION EKG Date: 08/17/18 Time: 13:18 Rhythm: NSR Rate (Beats/Min): 92 [place]: RAD-Right [place] Deviation (borderline) P-Wave: Present QRS: Normal ST-T: Normal QT: Normal EKG Interpretation Comments: reviewed with Dr. Roy Course - Vital Signs Last Recorded V/S: Last Vital Signs Temp 97.2 F 08/17/18 13:18 Pulse 95 08/17/18 13:18 Resp 16 08/17/18 13:18 BP 117/78 08/17/18 13:18 Pulse Ox 99 08/17/18 13:18 - Orders/Labs/Meds Orders: Active Orders 24 hr Category Date Time Status EKG Documentation Completion [RC] STAT Care 08/17/18 14:25 Ordered Labs: Laboratory Tests 08/17/18 08/17/18 08/17/18 Range/Units 13:18 13:18 13:18 WBC 13.66 H (3.98-10.04) K/mm3 RBC 4.25 (3.98-5.22) M/mm3 Hgb 13.2 (11.2-15.7) gm/L Hct 40.2 (34.1-44.9) % MCV 94.6 (79.4-94.8) fl MCH 31.1 (25.6-32.2) pg MCHC 32.8 (32.2-35.5) g/dl RDW Std Deviation 49.3 H (36.4-46.3) fL Plt Count 330 (182-369) K/mm3 MPV 10.6 (9.4-12.3) fl Neutrophils % (Manual) 81 H (40-60) % Band Neutrophils % 0 (0-10) % Lymphocytes % (Manual) 11 L (20-40) % Atypical Lymphs % 0 % Monocytes % (Manual) 6 (2-10) % Eosinophils % (Manual) 2 (0.7-5.8) % Basophils % (Manual) 0 L (0.1-1.2) Platelet Estimate Adequate RBC Morph Comment Normal PT 10.9 (9.5-12.1) SECONDS INR 1.00 APTT 34 H (24-31) SECONDS D-Dimer, Quantitative 0.74 H (0.19-0.50) mg/L Sodium 139 (136-145) mEq/L Potassium 4.5 (3.5-5.1) mEq/L Chloride 104 (98-107) mEq/L Carbon Dioxide 24 (21-32) mEq/L Anion Gap 15.5 H (5-15) BUN 29 H (7-18) mg/dL Creatinine 1.6 H (0.55-1.02) mg/dL Est Cr Clr Drug Dosing 35.18 mL/min Estimated GFR (MDRD) 34 (>60) mL/min BUN/Creatinine Ratio 18.1 H (14-18) Glucose 193 H (74-106) mg/dL Calcium 10.1 (8.5-10.1) mg/dL Total Bilirubin 0.3 (0.2-1.0) mg/dL AST 14 L (15-37) U/L ALT 32 (14-59) U/L Alkaline Phosphatase 88 (46-116) U/L Troponin I < 0.017 (0.00-0.056) ng/mL NT-Pro-B Natriuret Pep (0-125) pg/mL Total Protein 7.9 (6.4-8.2) g/dl Albumin 3.6 (3.4-5.0) g/dl Globulin 4.3 gm/dL Albumin/Globulin Ratio 0.8 L (1-2) 08/17/18 Range/Units 13:18 WBC (3.98-10.04) K/mm3 RBC (3.98-5.22) M/mm3 Hgb (11.2-15.7) gm/L Hct (34.1-44.9) % MCV (79.4-94.8) fl MCH (25.6-32.2) pg MCHC (32.2-35.5) g/dl RDW Std Deviation (36.4-46.3) fL Plt Count (182-369) K/mm3 MPV (9.4-12.3) fl Neutrophils % (Manual) (40-60) % Band Neutrophils % (0-10) % Lymphocytes % (Manual) (20-40) % Atypical Lymphs % % Monocytes % (Manual) (2-10) % Eosinophils % (Manual) (0.7-5.8) % Basophils % (Manual) (0.1-1.2) Platelet Estimate RBC Morph Comment PT (9.5-12.1) SECONDS INR APTT (24-31) SECONDS D-Dimer, Quantitative (0.19-0.50) mg/L Sodium (136-145) mEq/L Potassium (3.5-5.1) mEq/L Chloride (98-107) mEq/L Carbon Dioxide (21-32) mEq/L Anion Gap (5-15) BUN (7-18) mg/dL Creatinine (0.55-1.02) mg/dL Est Cr Clr Drug Dosing mL/min Estimated GFR (MDRD) (>60) mL/min BUN/Creatinine Ratio (14-18) Glucose (74-106) mg/dL Calcium (8.5-10.1) mg/dL Total Bilirubin (0.2-1.0) mg/dL AST (15-37) U/L ALT (14-59) U/L Alkaline Phosphatase (46-116) U/L Troponin I (0.00-0.056) ng/mL NT-Pro-B Natriuret Pep 243 H (0-125) pg/mL Total Protein (6.4-8.2) g/dl Albumin (3.4-5.0) g/dl Globulin gm/dL Albumin/Globulin Ratio (1-2) Meds: Medications Discontinued Medications Generic Name Dose Route Start Last Admin Trade Name Freq PRN Reason Stop Dose Admin Ketorolac Tromethamine 30 mg 08/17/18 14:25 08/17/18 14:31 Toradol IVPUSH 08/17/18 14:26 30 mg ONETIME ONE Administration - Re-Assessments/Exams Free Text/Narrative Re-Assessment/Exam: 08/17/18 14:35 Pt presents to the ED for the evaluation of unprovoked chest pain. I have ordered a cardiac workup due to the nature of her symptoms but did order 30 mg IV Toradol for pain management for suspected costochondritis. 08/17/18 16:21 Pt labs have returned, she is not having an VT, her WBC is mildly elevated this is likely a stress response, all other labs are essentially WNL and unremarkable for her symptoms. Her CXR is WNL with nothing acute appreciated. I will recommend treatment for costochondritis and follow up with her primary car provider if symptoms persist. Departure - Departure Time of Disposition: 16:25 Disposition: Home, Self-Care 01 Condition: Fair Clinical Impression: Costochondritis, acute Instructions: Costochondritis, [id number], Chest Wall Pain, [id number] Referrals: Isela Liao NP [Primary Care Provider] - Forms: ED Department Discharge Additional Instructions: You have been evaluated in the ED for your left sided chest pain. Your workup in the ED demonstrated that you are not having a heart attack today. Your pain is most likely due to an inflammation around your rib lining. This usually resolves itself with NSAID therapy. You may take tylenol 500 mg or ibuprofen 600mg q6 hrs for pain relief. Please do so until you have a tolerable level of pain with activity. Do not exceed 4000mg tylenol in one day. Do not exceed 3200mg ibuprofen in one day. Please return to ED if your symptoms should change or worsen. - My Orders Last 24 Hours: My Active Orders 08/17/18 14:25 EKG Documentation Completion [RC] STAT - Assessment/Plan Last 24 Hours: My Active Orders 08/17/18 14:25 EKG Documentation Completion [RC] STAT
--- NOTE | 2018-08-17 15:06 | CR ---
Chest: Two views of the chest were obtained. Comparison: No prior chest x-ray. Heart size and mediastinum are normal. Lungs are clear. Bony structures are unremarkable. Impression: 1. Nothing acute is seen on two-view chest x-ray. Diagnostic code #1
== END 2018-08-17 16:38 | disposition home or self-care (01) ==
LOC: JD.ED 13:10
DX: M94.0 Chondrocostal junction syndrome [Tietze] (principal); E78.00 Pure hypercholesterolemia, unspecified; I10 Essential (primary) hypertension; K21.9 Gastro-esophageal reflux disease without esophagitis; F41.9 Anxiety disorder, unspecified; F32.9 Major depressive disorder, single episode, unspecified; F17.210 Nicotine dependence, cigarettes, uncomplicated; Z79.82 Long term (current) use of aspirin; Z79.899 Other long term (current) drug therapy
CPT/HCPCS: 36415; 71046; 80053; 83880; 84484; 85007; 85027; 85379; 85610; 85730; 93005; 96374; 99284; J1885; 93010

== ENCOUNTER 2018-11-27 21:19 | Emergency (ER) | payer MEDICARE, MEDICAID ==
--- NOTE | 2018-11-27 21:49 | EDM.PDOC ---
ED HPI GENERAL MEDICAL PROBLEM - General Chief Complaint: Diabetic Complaint Stated Complaint: HIGH SUGARS Time Seen by Provider: 11/27/18 21:25 Source of Information: Reports: Patient, RN Notes Reviewed History Limitations: Reports: No Limitations - History of Present Illness INITIAL COMMENTS - FREE TEXT/NARRATIVE: The patient states that she has had diabetes for 15 years, previously on metformin, which appears to have been ineffective, therefore she was started on Trujeo, 1 injection every morning, this past 11/25/2018, and her metformin was discontinued. She checks her blood sugar 3 times a day, but has not accumulated enough data to have an idea of what her normal range is. She states that she ate dinner around 17:30, then checked her blood sugar around 20: 20, finding it to be elevated at 314. She reports feeling lightheaded and having a headache. No other recent illness, such as fever, nausea, vomiting, constipation, diarrhea, or urinary symptoms. Here in the ED, her Accu-Chek is 181. She is hemodynamically stable. The patient's PCP is Isela Liao. The patient has not yet met with the diabetic nurse. - Related Data Allergies Allergy/AdvReac Type Severity Reaction Status Date / Time No Known Allergies Allergy Verified 06/19/18 11:41 Home Meds: Home Meds Aspirin [Halfprin] 324 mg PO DAILY 05/20/14 [History] Lisinopril 10 mg PO DAILY 05/20/14 [History] Simvastatin [Zocor] 40 mg PO QPM 05/20/14 [History] Albuterol Sulfate [Albuterol Sulfate HFA] 2 puff INH Q4H PRN 08/24/14 [History] PARoxetine HCl [Paxil] 60 mg PO DAILY 07/27/15 [History] ALPRAZolam [Xanax] 0.5 mg PO QID PRN 04/06/16 [History] buPROPion [Wellbutrin XL] 150 mg PO DAILY 05/11/17 [History] Insulin Glargine,Hum.Rec.Anlog [Toujeo Solostar] 15 units INJECT DAILY 11/27/18 [History] Liraglutide [Victoza] 1.8 ml INJECT DAILY 11/27/18 [History] Past Medical History HEENT History: Reports: Impaired Vision Other HEENT History: wears glasses Cardiovascular History: Reports: High Cholesterol, Hypertension 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 History: Reports: GERD Genitourinary History: Reports: Chronic Renal Insuffiency 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: Musculoskeletal History: Reports: Back Pain, Chronic Psychiatric History: Reports: Anxiety, Depression Endocrine/Metabolic History: Reports: Diabetes, Type II, Obesity/BMI 30+ - Past Surgical History HEENT Surgical History: Reports: Tonsillectomy GI Surgical History: Reports: Appendectomy, Cholecystectomy Female Surgical History: Reports: Section (x 2), Hysterectomy ( partial), Tubal Ligation Neurological Surgical History: Reports: Lumbar Spine (L4-L5 fusion, x 2) Social & Family History - Family History Family Medical History: Noncontributory - Tobacco Use Smoking Status *Q: Current Every Day Smoker Years of Tobacco use: 32 Packs/Tins Daily: 1 - Caffeine Use Caffeine Use: Reports: Coffee, Soda - Alcohol Use Alcohol Use History: Yes Alcohol Use Frequency: Rarely - Recreational Drug Use Recreational Drug Use: No - Living Situation & Occupation Living situation: Reports: , with Family (Daughter + 2 grandkids) Occupation: Unemployed ED ROS GENERAL - Review of Systems Review Of Systems: ROS reveals no pertinent complaints other than HPI. ED EXAM GENERAL NO PERIP PULSE - Physical Exam Exam: See Below Exam Limited By: No Limitations General Appearance: Alert, WD/WN, No Apparent Distress Eye Exam: Bilateral Eye: EOMI, Normal Inspection Ears: Normal External Exam, Hearing Grossly Normal Nose: Normal Inspection Throat/Mouth: Normal Inspection, Normal Lips, Normal Voice, No Airway Compromise Head: Atraumatic, Normocephalic Neck: Normal Inspection, Full Range of Motion Respiratory/Chest: No Respiratory Distress, Lungs Clear, Normal Breath Sounds, No Accessory Muscle Use Cardiovascular: Normal Peripheral Pulses, Regular Rate, Rhythm, No Gallop, No JVD, No Murmur, No Rub GI/Abdominal: Normal Bowel Sounds, Soft, Non-Tender, No Organomegaly, No Distention, No Abnormal Bruit, No Mass, Other (Obese) (Female) Exam: Deferred Rectal (Female) Exam: Deferred Back Exam: Normal Inspection, Full Range of Motion, NT Extremities: Normal Inspection, Normal Range of Motion, No Pedal Edema, Normal Capillary Refill Neurological: Alert, Oriented, Normal Cognition, No Motor/Sensory Deficits Psychiatric: Normal Affect Skin Exam: Warm, Dry, Intact, Normal Color, No Rash Course - Vital Signs Last Recorded V/S: Last Vital Signs Temp 36.3 C 11/27/18 21:53 Pulse 75 11/27/18 21:53 Resp 16 11/27/18 21:53 BP 99/73 11/27/18 21:53 Pulse Ox 100 11/27/18 21:53 Orthostatic Blood Pressure [ 99/73 Standing] Orthostatic Blood Pressure [ 109/75 Sitting] Orthostatic Blood Pressure [ 113/73 Supine] - Orders/Labs/Meds Orders: Active Orders 24 hr Category Date Time Status Orthostatic Vital Signs [RC] STAT Care 11/27/18 21:43 Active Labs: Laboratory Tests 11/27/18 11/27/18 11/27/18 Range/Units 21:26 21:55 21:55 WBC 12.30 H (3.98-10.04) K/mm3 RBC 3.95 L (3.98-5.22) M/mm3 Hgb 12.7 (11.2-15.7) gm/L Hct 38.1 (34.1-44.9) % MCV 96.5 H (79.4-94.8) fl MCH 32.2 (25.6-32.2) pg MCHC 33.3 (32.2-35.5) g/dl RDW Std Deviation 49.1 H (36.4-46.3) fL Plt Count 277 (182-369) K/mm3 MPV 10.3 (9.4-12.3) fl Neutrophils % (Manual) 63 H (40-60) % Band Neutrophils % 0 (0-10) % Lymphocytes % (Manual) 26 (20-40) % Atypical Lymphs % 0 % Monocytes % (Manual) 9 (2-10) % Eosinophils % (Manual) 2 (0.7-5.8) % Basophils % (Manual) 0 L (0.1-1.2) Platelet Estimate Adequate RBC Morph Comment Normal Sodium 138 (136-145) mEq/L Potassium 4.5 (3.5-5.1) mEq/L Chloride 104 (98-107) mEq/L Carbon Dioxide 21 (21-32) mEq/L Anion Gap 17.5 H (5-15) BUN 28 H (7-18) mg/dL Creatinine 1.8 H (0.55-1.02) mg/dL Est Cr Clr Drug Dosing 31.27 mL/min Estimated GFR (MDRD) 30 (>60) mL/min BUN/Creatinine Ratio 15.6 (14-18) Glucose 191 H (74-106) mg/dL POC Glucose 181 H (70-105) mg/dL Calcium 9.4 (8.5-10.1) mg/dL Magnesium 1.7 L (1.8-2.4) mg/dl Total Bilirubin 0.1 L (0.2-1.0) mg/dL AST 7 L (15-37) U/L ALT 22 (14-59) U/L Alkaline Phosphatase 92 (46-116) U/L Total Protein 7.2 (6.4-8.2) g/dl Albumin 3.7 (3.4-5.0) g/dl Globulin 3.5 gm/dL Albumin/Globulin Ratio 1.1 (1-2) - Re-Assessments/Exams Free Text/Narrative Re-Assessment/Exam: 11/27/18 21:44 While the patient's glucometer at home read 314, it is 181 here. It is unclear if the elevated reading is because of a malfunction of her glucometer, or because it really was elevated, but for some reason has since come down. The patient states that she ate dinner around 17:30, which would likely have caused her blood sugar to go up, not down. I offered to calibrate the patient's glucometer here, however, the patient did not bring any test strips. The patient denies recent illness, but because of her complaint of feeling lightheaded and a headache, I have ordered some blood work and orthostatics. 11/27/18 22:04 The patient is not orthostatic. 11/27/18 22:42 The patient's CBC is remarkable for a WBC count mildly elevated at 12.30, but with 0% bandemia. The remainder of the CBC is unremarkable. The patient's CMP is remarkable for a BUN/Cr elevated at 28/1.8. They were 27/ 1.8 on 11/25/2018, and review of prior medical records indicates that the patient 's usual creatinine is between 1.5 and 1.8 over the past year. Her blood glucose is 191. A nerve her CMP is unremarkable. The patient's magnesium level is slightly low at 1.7. I will add chronic renal insufficiency to the patient's past medical history. 11/27/18 22:48 Test results discussed with the patient. Because the patient did not do anything to cause her blood glucose to drop between home and here, it is most likely that her Accu-Chek machine is not functioning correctly. I suggested that she follow-up with her PCP, however, she stated that the pharmacy is good about giving her a new machine. Departure - Departure Time of Disposition: 22:49 Disposition: Home, Self-Care 01 Condition: Good Clinical Impression: Hyperglycemia due to type 2 diabetes mellitus - Discharge Information *PRESCRIPTION DRUG MONITORING PROGRAM REVIEWED*: Not Applicable *COPY OF PRESCRIPTION DRUG MONITORING REPORT IN PATIENT DANA: Not Applicable Referrals: Isela Liao LEAD ENTERPRISE ARCHITECT [Primary Care Provider] - Forms: ED Department Discharge Additional Instructions: You were seen in the emergency room after your Accu-Chek read 314 at home. In the emergency department, your Accu-Chek was 181. Workup in the ER included blood work and positional blood pressure checks. Your workup found that you have chronic renal insufficiency. Your blood glucose was confirmed at 191. Your magnesium was slightly low at 1.7. Because you did not take any medication to cause your blood glucose to drop from 314 to 181, it is most likely that your machine gave you an inaccurate reading. We recommend that you either follow-up with your PCP, Isela Liao NP, or acquire a new Accu-Chek machine from your pharmacist. If any other problems, please do not hesitate to return to the ER. - My Orders Last 24 Hours: My Active Orders 11/27/18 21:43 Orthostatic Vital Signs [RC] STAT - Assessment/Plan Last 24 Hours: My Active Orders 11/27/18 21:43 Orthostatic Vital Signs [RC] STAT
[2018-11-27 21:54] VITALS: BP 99/73
== END 2018-11-27 23:00 | disposition home or self-care (01) ==
LOC: JD.ED 21:19
DX: E11.65 Type 2 diabetes mellitus with hyperglycemia (principal); I12.9 Hypertensive chronic kidney disease with stage 1 through stage 4 chronic kidney disease, or unspecified chronic kidney disease; N18.9 Chronic kidney disease, unspecified; K21.9 Gastro-esophageal reflux disease without esophagitis; E11.22 Type 2 diabetes mellitus with diabetic chronic kidney disease; F41.9 Anxiety disorder, unspecified; F32.9 Major depressive disorder, single episode, unspecified; E66.9 Obesity, unspecified; F17.210 Nicotine dependence, cigarettes, uncomplicated; Z79.82 Long term (current) use of aspirin; Z79.4 Long term (current) use of insulin; Z79.899 Other long term (current) drug therapy; Z98.890 Other specified postprocedural states; Z90.49 Acquired absence of other specified parts of digestive tract; Z90.710 Acquired absence of both cervix and uterus; Z98.51 Tubal ligation status; Z98.1 Arthrodesis status
CPT/HCPCS: 36415; 80053; 82962; 83735; 85007; 85027; 99283; 99284

== ENCOUNTER 2019-03-07 20:57 | Emergency (ER) | payer MEDICARE, MEDICAID ==
[2019-03-07 21:05] VITALS: BP 149/81; PULSE 94
--- NOTE | 2019-03-07 21:09 | EDM.PDOC ---
ED HPI GENERAL MEDICAL PROBLEM - General Chief Complaint: General Stated Complaint: RECENT SURGERY LEG PAIN TIFFANY SOB Time Seen by Provider: 03/07/19 21:08 - History of Present Illness INITIAL COMMENTS - FREE TEXT/NARRATIVE: 48-year-old female presents emergency room with increasing shortness of breath. 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 She's noticed when she gets out and tries to do stuff she gets easily winded and short of breath. The type of tumor she had removed is unknown. Patient has type 2 diabetes hypertension and hyperlipidemia as well as morbid obesity. She has mild chest discomfort has a hard time quantifying it. Right Lower Leg Pain Score (Numeric/FACES): 7 - Related Data Allergies Allergy/AdvReac Type Severity Reaction Status Date / Time No Known Allergies Allergy Verified 06/19/18 11:41 Home Meds: Home Meds Aspirin [Halfprin] 324 mg PO DAILY 05/20/14 [History] Lisinopril 10 mg PO DAILY 05/20/14 [History] Simvastatin [Zocor] 40 mg PO QPM 05/20/14 [History] Albuterol Sulfate [Albuterol Sulfate HFA] 2 puff INH Q4H PRN 08/24/14 [History] PARoxetine HCl [Paxil] 60 mg PO DAILY 07/27/15 [History] ALPRAZolam [Xanax] 0.5 mg PO QID PRN 04/06/16 [History] buPROPion [Wellbutrin XL] 150 mg PO DAILY 05/11/17 [History] Insulin Glargine,Hum.Rec.Anlog [Toujeo Solostar] 15 units INJECT DAILY 11/27/18 [History] Liraglutide [Victoza] 1.8 ml INJECT DAILY 11/27/18 [History] Insulin Aspart [NovoLOG] 1 dose SQ BEDTIME 03/07/19 [History] Past Medical History HEENT History: Reports: Impaired Vision Other HEENT History: wears glasses Cardiovascular History: Reports: High Cholesterol, Hypertension 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 History: Reports: GERD Genitourinary History: Reports: Chronic Renal Insuffiency 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: Musculoskeletal History: Reports: Back Pain, Chronic Psychiatric History: Reports: Anxiety, Depression Endocrine/Metabolic History: Reports: Diabetes, Type II, Obesity/BMI 30+ - Past Surgical History HEENT Surgical History: Reports: Tonsillectomy GI Surgical History: Reports: Appendectomy, Cholecystectomy Female Surgical History: Reports: Section, Hysterectomy, Tubal Ligation Neurological Surgical History: Reports: Lumbar Spine Musculoskeletal Surgical History: Reports: Other (See Below) Other Musculoskeletal Surgeries/Procedures:: 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 Social & Family History - Family History Family Medical History: Noncontributory - Tobacco Use Smoking Status *Q: Current Every Day Smoker Years of Tobacco use: 30 Packs/Tins Daily: 1 - Caffeine Use Caffeine Use: Reports: Soda - Recreational Drug Use Recreational Drug Use: No - Living Situation & Occupation Living situation: Reports: , with Family (Daughter + 2 grandkids) Occupation: Unemployed ED ROS GENERAL - Review of Systems Review Of Systems: See Below Constitutional: Reports: No Symptoms HEENT: Reports: No Symptoms Respiratory: Reports: Shortness of Breath Cardiovascular: Reports: Chest Pain Endocrine: Reports: No Symptoms GI/Abdominal: Reports: No Symptoms : Reports: No Symptoms Musculoskeletal: Reports: Other (Leg little sore at surgery site) Neurological: Reports: No Symptoms ED EXAM, GENERAL - Physical Exam Exam: See Below Exam Limited By: No Limitations General Appearance: Alert, No Apparent Distress Head: Atraumatic, Normocephalic Respiratory/Chest: No Respiratory Distress, Lungs Clear Cardiovascular: Regular Rate, Rhythm, No Edema, No Murmur GI/Abdominal: Normal Bowel Sounds, Soft, Non-Tender Extremities: Other (Examination of her incision site on her right lower leg shows no excessive drainage heat or redness) Course - Vital Signs Last Recorded V/S: Last Vital Signs Temp 37.1 C 03/07/19 21:02 Pulse 94 03/07/19 21:02 Resp 20 03/07/19 21:02 BP 149/81 H 03/07/19 21:02 Pulse Ox 94 L 03/07/19 21:02 - Orders/Labs/Meds Orders: Active Orders 24 hr Category Date Time Status EKG Documentation Completion [RC] STAT Care 03/07/19 21:17 Ordered Chest 2V [CR] Stat Exams 03/07/19 21:14 Ordered CBC WITH MANUAL DIFF [HEME] Stat Lab 03/07/19 21:13 Ordered COMPREHENSIVE METABOLIC PN,CMP [CHEM] Stat Lab 03/07/19 21:13 Ordered D Dimer [D-DIMER QUANTITATIVE] [COAG] Stat Lab 03/07/19 21:14 Ordered TROPONIN I [CHEM] Stat Lab 03/07/19 21:17 Ordered Sodium Chloride 0.9% [Normal Saline] 500 ml Med 03/07/19 21:18 Ordered IV .BOLUS Medication Orders Sodium Chloride (Normal Saline) 500 mls @ 500 mls/hr IV .BOLUS ONE Stop: 03/07/19 22:17 Meds: Medications Generic Name Dose Route Start Last Admin Trade Name [place] PRN Reason Stop Dose Admin Sodium Chloride 500 mls @ 500 mls/hr 03/07/19 21:18 Normal Saline IV 03/07/19 22:17 .BOLUS ONE - Re-Assessments/Exams Free Text/Narrative Re-Assessment/Exam: 03/07/19 23:02 White count is not elevated d-dimer is not elevated chest x-ray is unremarkable for acute changes she's some atelectasis noted. EKG is entirely normal she does have some elevated liver enzymes most likely due to fatty liver but she needs to discuss this with her regular physician. Departure - Departure Time of Disposition: 23:02 Disposition: Refer to Observation Clinical Impression: Postoperative pain, Shortness of breath - Discharge Information Referrals: Isela Liao, CONTENT SPECIALIST [Primary Care Provider] - Forms: ED Department Discharge Additional Instructions: Return to the emergency room with any questions problems worsening symptoms. Call your surgeon tomorrow and discuss if you need a stronger pain medication. Follow-up with your regular provider for a good check over and discuss your elevated liver enzymes. - My Orders Last 24 Hours: My Active Orders 03/07/19 21:13 CBC WITH MANUAL DIFF [HEME] Stat COMPREHENSIVE METABOLIC PN,CMP [CHEM] Stat 03/07/19 21:14 Chest 2V [CR] Stat D Dimer [D-DIMER QUANTITATIVE] [COAG] Stat 03/07/19 21:17 EKG Documentation Completion [RC] STAT TROPONIN I [CHEM] Stat 03/07/19 21:18 Sodium Chloride 0.9% [Normal Saline] 500 ml IV .BOLUS - Assessment/Plan Last 24 Hours: My Active Orders 03/07/19 21:13 CBC WITH MANUAL DIFF [HEME] Stat COMPREHENSIVE METABOLIC PN,CMP [CHEM] Stat 03/07/19 21:14 Chest 2V [CR] Stat D Dimer [D-DIMER QUANTITATIVE] [COAG] Stat 03/07/19 21:17 EKG Documentation Completion [RC] STAT TROPONIN I [CHEM] Stat 03/07/19 21:18 Sodium Chloride 0.9% [Normal Saline] 500 ml IV .BOLUS
[2019-03-07] MEDS ORDERED: Sodium Chloride 0.9% 500 ML IV ONE (21:18)
[2019-03-07] MEDS ORDERED: Sodium Chloride 0.9% 1,000 ML IV SCH (21:30)
--- NOTE | 2019-03-08 09:22 | CR ---
Chest: Two views of the chest were obtained. Comparison: Prior chest x-ray of 08/17/18. Scattered areas of discoid atelectasis are noted within the left upper lung and right lower lung. Lungs otherwise are clear. Heart size and mediastinum are normal. Bony structures appear within normal limits for the patient's age. Impression: 1. Areas of atelectasis as noted above. 2. Nothing acute is otherwise seen. Diagnostic code #2
== END 2019-03-07 23:15 | disposition home or self-care (01) ==
LOC: JD.ED 20:57
DX: R06.02 Shortness of breath (principal); G89.18 Other acute postprocedural pain; M79.661 Pain in right lower leg; E11.22 Type 2 diabetes mellitus with diabetic chronic kidney disease; I12.9 Hypertensive chronic kidney disease with stage 1 through stage 4 chronic kidney disease, or unspecified chronic kidney disease; N18.9 Chronic kidney disease, unspecified; E78.00 Pure hypercholesterolemia, unspecified; Z79.4 Long term (current) use of insulin; F32.9 Major depressive disorder, single episode, unspecified; F41.9 Anxiety disorder, unspecified; F17.210 Nicotine dependence, cigarettes, uncomplicated; E66.9 Obesity, unspecified; Z79.82 Long term (current) use of aspirin; Z79.899 Other long term (current) drug therapy; Z98.890 Other specified postprocedural states; Z90.710 Acquired absence of both cervix and uterus; Z90.49 Acquired absence of other specified parts of digestive tract
CPT/HCPCS: 36415; 71046; 80053; 84484; 85007; 85027; 85379; 93005; 96360; 99284; J7040; 99283

== ENCOUNTER 2019-04-18 20:38 | Emergency (ER) | payer MEDICARE, MEDICAID ==
[2019-04-18 20:49] VITALS: BP 128/75; PULSE 81
--- NOTE | 2019-04-18 21:34 | EDM.PDOC ---
ED HPI GENERAL MEDICAL PROBLEM - General Chief Complaint: Cardiovascular Problem Stated Complaint: IRREGULAR HEARTBEAT Time Seen by Provider: 04/18/19 21:08 Source of Information: Reports: Patient, RN Notes Reviewed - History of Present Illness INITIAL COMMENTS - FREE TEXT/NARRATIVE: 48 year old female with palpitations yesterday and today. Occasional feeling of irregularity. No other chest pain or difficulty breathing. She does drink some caffeine. Has not been sleeping well. Has otherwise not been feeling ill. - Related Data Allergies Allergy/AdvReac Type Severity Reaction Status Date / Time No Known Allergies Allergy Verified 04/18/19 20:49 Home Meds: Home Meds Aspirin [Halfprin] 324 mg PO DAILY 05/20/14 [History] Lisinopril 10 mg PO DAILY 05/20/14 [History] Simvastatin [Zocor] 40 mg PO QPM 05/20/14 [History] Albuterol Sulfate [Albuterol Sulfate HFA] 2 puff INH Q4H PRN 08/24/14 [History] PARoxetine HCl [Paxil] 60 mg PO DAILY 07/27/15 [History] ALPRAZolam [Xanax] 0.5 mg PO QID PRN 04/06/16 [History] buPROPion [Wellbutrin XL] 150 mg PO DAILY 05/11/17 [History] Insulin Glargine,Hum.Rec.Anlog [Toujeo Solostar] 15 units INJECT DAILY 11/27/18 [History] Liraglutide [Victoza] 1.8 ml INJECT DAILY 11/27/18 [History] Insulin Aspart [NovoLOG] 1 dose SQ BEDTIME 03/07/19 [History] hydrOXYzine HCl [Atarax] 25 mg PO BEDTIME 04/18/19 [History] Past Medical History HEENT History: Reports: Impaired Vision Other HEENT History: wears glasses Cardiovascular History: Reports: High Cholesterol 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 History: Reports: GERD Genitourinary History: Reports: Chronic Renal Insuffiency 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: Musculoskeletal History: Reports: Back Pain, Chronic Psychiatric History: Reports: Anxiety, Depression Endocrine/Metabolic History: Reports: Diabetes, Type II, Obesity/BMI 30+ - Past Surgical History HEENT Surgical History: Reports: Tonsillectomy GI Surgical History: Reports: Appendectomy, Cholecystectomy Female Surgical History: Reports: Section, Hysterectomy, Tubal Ligation Neurological Surgical History: Reports: Lumbar Spine Musculoskeletal Surgical History: Reports: Other (See Below) Other Musculoskeletal Surgeries/Procedures:: 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 Social & Family History - Family History Family Medical History: Noncontributory - Tobacco Use Smoking Status *Q: Current Every Day Smoker Years of Tobacco use: 30 Packs/Tins Daily: 1 - Caffeine Use Caffeine Use: Reports: None - Recreational Drug Use Recreational Drug Use: No - Living Situation & Occupation Living situation: Reports: , with Family (Daughter + 2 grandkids) Occupation: Unemployed ED ROS GENERAL - Review of Systems Review Of Systems: See Below Constitutional: Denies: Fever, Chills HEENT: Denies: Throat Pain Respiratory: Denies: Shortness of Breath Cardiovascular: Reports: Palpitations. Denies: Chest Pain GI/Abdominal: Denies: Abdominal Pain, Nausea, Vomiting Musculoskeletal: Reports: No Symptoms Skin: Reports: No Symptoms ED EXAM, GENERAL - Physical Exam Exam: See Below General Appearance: Alert, No Apparent Distress Throat/Mouth: Normal Inspection, Normal Oropharynx Head: Atraumatic Neck: Supple Respiratory/Chest: No Respiratory Distress, Lungs Clear, Normal Breath Sounds Cardiovascular: Regular Rate, Rhythm GI/Abdominal: Soft, Non-Tender Extremities: Normal Inspection, Normal Range of Motion Neurological: Alert, Oriented, No Motor/Sensory Deficits Skin Exam: Warm, Dry, Normal Color EKG INTERPRETATION EKG Date: 04/18/19 Rhythm: NSR [place]: Normal P-Wave: Present QRS: Normal ST-T: Normal Course - Vital Signs Last Recorded V/S: Last Vital Signs Temp 97.3 F 04/18/19 20:46 Pulse 81 04/18/19 20:46 Resp 19 04/18/19 20:46 BP 128/75 04/18/19 20:46 Pulse Ox 97 04/18/19 20:46 - Orders/Labs/Meds Orders: Active Orders 24 hr Category Date Time Status EKG 12 Lead [EKG Documentation Completion] [RC] STAT Care 04/18/19 21:09 Active Meds: Medications Discontinued Medications Generic Name Dose Route Start Last Admin Trade Name Freq PRN Reason Stop Dose Admin Lorazepam 1 mg 04/18/19 21:44 04/18/19 22:00 Ativan PO 04/18/19 21:45 1 mg ONETIME ONE Administration - Re-Assessments/Exams Free Text/Narrative Re-Assessment/Exam: 04/18/19 22:38 We did catch a PVC that I saw on the cardiac moniter during hx and exam. EKG is nl. Vitals nl, otherwise normal sinus rythm Departure - Departure Time of Disposition: 21:44 Disposition: Home, Self-Care 01 Condition: Fair Clinical Impression: PVCs (premature ventricular contractions) Instructions: Premature Ventricular Contraction, Palpitations, [id number] Referrals: Isela Liao LOOK OUT TOWER FIRE WATCHER [Primary Care Provider] - Forms: ED Department Discharge Additional Instructions: Your EKG is normal. Your heart and lung exam is normal. These PVC's are not a danger but they can be annoying. Try reduce your caffeine intake by 30 to 50 %. Ativan 0.5 mg tonight when you get home to help you sleep and than other 0.5 mg tomorrow night or when you next need it. Follow up with your regular medical provider if you continue to have these symptoms. - My Orders Last 24 Hours: My Active Orders 04/18/19 21:09 EKG 12 Lead [EKG Documentation Completion] [RC] STAT - Assessment/Plan Last 24 Hours: My Active Orders 04/18/19 21:09 EKG 12 Lead [EKG Documentation Completion] [RC] STAT
[2019-04-18] MEDS ORDERED: LORazepam 1 MG Tab PO ONE (21:44)
== END 2019-04-18 22:04 | disposition home or self-care (01) ==
LOC: JD.ED 20:38
DX: I49.3 Ventricular premature depolarization (principal); E11.22 Type 2 diabetes mellitus with diabetic chronic kidney disease; N18.9 Chronic kidney disease, unspecified; E78.00 Pure hypercholesterolemia, unspecified; F32.9 Major depressive disorder, single episode, unspecified; F17.210 Nicotine dependence, cigarettes, uncomplicated; Z79.82 Long term (current) use of aspirin; Z79.4 Long term (current) use of insulin; Z79.899 Other long term (current) drug therapy
CPT/HCPCS: 93005; 99284; A9270; 93010; 99283

== ENCOUNTER 2020-09-04 19:38 | Emergency (ER) | payer MEDICARE, MEDICAID ==
[2020-09-04 19:52] VITALS: BP 139/87; PULSE 94
[2020-09-04] MEDS ORDERED: Alum Hydrox/Mag Hydrox/Simeth 30 ML, Lidocaine 2% 15 ML PO STA ×2 (20:20)
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
[2020-09-04] MEDS ORDERED: Aspirin 81 MG Tab.Chew PO STA (21:37)
[2020-09-04] MEDS ORDERED: Heparin Sodium 5,000 Units/ML Vial IVPUSH STA (21:37)
[2020-09-04] MEDS ORDERED: Heparin Sodium/D5W 25,000 UNITS/500 ML BAG IV SCH (21:45)
[2020-09-04] MEDS ORDERED: HYDROmorphone 0.5 MG/0.5 ML Syringe IVPUSH ONE (22:07)
[2020-09-04] MEDS ORDERED: Ondansetron 4 MG/2 ML SDV IVPUSH ONE (22:07)
--- NOTE | 2020-09-05 07:03 | CR ---
Chest: PA and lateral views of the chest were obtained. Comparison: Prior chest x-ray of 03/07/19. Linear density is noted on the PA view within the left upper chest which appears stable. Other areas of increased density are noted anteriorly on the lateral view raising the possibility of mild pneumonia. Lungs otherwise are clear. Heart size and mediastinum are normal. No acute osseous abnormality is appreciated. Surgical clips are seen from prior cholecystectomy. Prior lumbar spine surgery is noted. Impression: 1. Scarring within the left mid chest. Additional density is noted on the lateral view within the lingula. Difficult to exclude mild area of pneumonia if patient has infectious symptoms. 2. Other findings believed to be incidental as noted above. Diagnostic code #3
== END 2020-09-04 22:27 ==
LOC: JD.ED 19:38
DX: R07.9 Chest pain, unspecified (principal); R79.89 Other specified abnormal findings of blood chemistry; I12.9 Hypertensive chronic kidney disease with stage 1 through stage 4 chronic kidney disease, or unspecified chronic kidney disease; N18.9 Chronic kidney disease, unspecified; E78.00 Pure hypercholesterolemia, unspecified; E11.22 Type 2 diabetes mellitus with diabetic chronic kidney disease; K21.9 Gastro-esophageal reflux disease without esophagitis; E66.9 Obesity, unspecified; Z72.0 Tobacco use; Z68.39 Body mass index [BMI] 39.0-39.9, adult; Z20.822 Contact with and (suspected) exposure to COVID-19
CPT/HCPCS: 36415; 71046; 80053; 83690; 83735; 84484; 85007; 85027; 85379; 93005; 96365; 96375; 99285; A9270; J1170; J1644; J2405; U0002; 93010

== ENCOUNTER 2020-11-27 21:46 | Emergency (ER) | payer MEDICARE, MEDICAID | END 2020-11-27 22:15 | disposition left against medical advice (07) | LOC: JD.ED 21:46 | DX: Z53.21 Procedure and treatment not carried out due to patient leaving prior to being seen by health care provider (principal) ==

== ENCOUNTER 2020-11-28 20:47 | Emergency (ER) | payer MEDICARE, MEDICAID ==
[2020-11-28 21:07] VITALS: BP 146/93; PULSE 100
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
[2020-11-28] MEDS ORDERED: Acetaminophen/HYDROcodone 325-5 MG Tab PO ONE (22:56)
[2020-11-28] MEDS ORDERED: Ketorolac 30 MG/ML SDV IM ONE (22:57)
== END 2020-11-28 23:48 | disposition home or self-care (01) ==
LOC: JD.ED 20:47
DX: M54.2 Cervicalgia (principal); M54.5 Low back pain; E78.00 Pure hypercholesterolemia, unspecified; I10 Essential (primary) hypertension; E66.9 Obesity, unspecified; Z79.4 Long term (current) use of insulin; Z79.899 Other long term (current) drug therapy; Z68.30 Body mass index [BMI] 30.0-30.9, adult; Z79.82 Long term (current) use of aspirin; Z72.0 Tobacco use; Z68.39 Body mass index [BMI] 39.0-39.9, adult
CPT/HCPCS: 96372; 99283; A9270; J1885

== ENCOUNTER 2020-12-03 15:39 | Emergency (ER) | payer MEDICARE, MEDICAID ==
[2020-12-03 15:50] VITALS: BP 135/91; PULSE 88
[2020-12-03] MEDS ORDERED: HYDROmorphone 1 MG/ML Syringe IM ONE (16:45)
[2020-12-03] MEDS ORDERED: Promethazine 25 MG/ML SDV IM ONE (16:45)
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
== END 2020-12-03 17:31 | disposition home or self-care (01) ==
LOC: JD.ED 15:39
DX: G44.319 Acute post-traumatic headache, not intractable (principal); M47.22 Other spondylosis with radiculopathy, cervical region; E78.00 Pure hypercholesterolemia, unspecified; J44.9 Chronic obstructive pulmonary disease, unspecified; Z79.82 Long term (current) use of aspirin; Z79.4 Long term (current) use of insulin; Z79.899 Other long term (current) drug therapy; I12.9 Hypertensive chronic kidney disease with stage 1 through stage 4 chronic kidney disease, or unspecified chronic kidney disease; N18.9 Chronic kidney disease, unspecified; E11.22 Type 2 diabetes mellitus with diabetic chronic kidney disease; E66.9 Obesity, unspecified; Z68.41 Body mass index [BMI] 40.0-44.9, adult; Z72.0 Tobacco use
CPT/HCPCS: 96372; 99283; J1170; J2550; 99284

== ENCOUNTER 2020-12-30 20:14 | Observation (INO) | payer MEDICARE, MEDICAID ==
[2020-12-30] MEDS ORDERED: Sodium Chloride 0.9% 10 ML Syringe FLUSH PRN (21:19)
[2020-12-30] MEDS ORDERED: Sodium Chloride 0.9% 500 ML IV ONE (21:32)
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
[2020-12-31] MEDS ORDERED: Ondansetron 4 MG/2 ML SDV IVPUSH PRN (01:30)
[2020-12-31] MEDS ORDERED: Sodium Chloride 0.9% 1,000 ML IV SCH (01:30)
[2020-12-31] MEDS ORDERED: Acetaminophen 325 MG Tab PO PRN (01:31)
[2020-12-31] MEDS ORDERED: ALPRAZolam 0.5 MG Tab PO PRN (08:49)
[2020-12-31] MEDS ORDERED: oxyCODONE 5 MG Tab PO PRN (08:53)
[2020-12-31] MEDS ORDERED: Lactated Ringers 1,000 ML IV SCH (09:00)
[2020-12-31] MEDS ORDERED: Insulin Glarg,Human.Rec.Analog 100 Unit/ML SUBCUT SCH (09:00)
[2020-12-31] MEDS ORDERED: Lisinopril 10 MG Tab PO SCH (09:00)
[2020-12-31] MEDS ORDERED: Heparin Sodium 5,000 Units/ML Vial SUBCUT SCH (09:00)
[2020-12-31] MEDS ORDERED: Aspirin 81 MG Tab.EC PO SCH (09:00)
--- NOTE | 2020-12-31 09:15 | PCM.DCSUM1 ---
Discharge Summary - Hospital Course Free Text/Narrative:: Assessment: This is a 50F with PMhx of Type II DM, Anxiety, HTN, HLD, CKD StageIII who presented to ED last night for evaluation of dehydration. On presentation she was noted to be confused and endorsed being outside in the hot temperature with limited oral intake. She denied nausea, vomiting, chest pain, abdominal pain, headache. She presented to ED where lab workup revealed Cr 2.3 (baseline Cr 1.4-1.8). She was given IVF and admitted for further evaluation. This morning the patient states she is back to baseline. She is alert and oriented. She tolerated her breakfast. She states she wants to be discharged from hospital. 1. MARIBEL/Hx of CKD Stage III 2. Hx of type II DM 3. Hx of HLD 4. Hx of HTN Plan -the patient was treated with IVF. This morning the patient requested discharge. Risk of premature discharge including potential for renal failure, electrolyte imbalance, and potential for . These risks were explained to patient. She voiced understanding of these risks and stated she would return to ED if she felt her symptoms were worsening. I have asked that she follow up with her primary care clinic tomorrow for post hospital follow up. I have asked that she hold her lisinopril until she is seen by her primary care provider. HPI Initial Comments: Assessment: This is a 50F with PMhx of Type II DM, Anxiety, HTN, HLD, CKD StageIII who presented to ED last night for evaluation of dehydration. On presentation she was noted to be confused and endorsed being outside in the hot temperature with limited oral intake. She denied nausea, vomiting, chest pain, abdominal pain, headache. She presented to ED where lab workup revealed Cr 2.3 (baseline Cr 1.4-1.8). She was given IVF and admitted for further evaluation. This morning the patient states she is back to baseline. She is alert and oriented. She tolerated her breakfast. She states she wants to be discharged from hospital. Diagnosis: Stroke: No - Discharge Data Discharge Date: 12/31/20 Discharge Disposition: Against Medical Advice 07 Condition: Good - Referral to Home Health Primary Care Physician: Isela Liao NP - Discharge Diagnosis/Problem(s) (1) Acute renal failure SNOMED Code(s): 89032765 ICD Code: N17.9 - ACUTE KIDNEY FAILURE, UNSPECIFIED Status: Acute Qualifiers: Acute renal failure type: unspecified Qualified Code(s): N17.9 - Acute kidney failure, unspecified - Patient Instructions Diet: Usual Diet as Tolerated (Renal/Diabetic diet ), Regular Diet as Tolerated Driving: May Drive Today Other/Special Instructions: Please follow up with your primary clinic in 1 day for post hospital follow up - Discharge Plan *PRESCRIPTION DRUG MONITORING PROGRAM REVIEWED*: Not Applicable *COPY OF PRESCRIPTION DRUG MONITORING REPORT IN PATIENT DANA: Not Applicable Home Medications: Home Meds Aspirin [Halfprin] 81 mg PO DAILY 05/20/14 [History] ALPRAZolam [Xanax] 0.5 mg PO QID PRN 04/06/16 [History] Insulin Glargine,Hum.Rec.Anlog [Toujeo Solostar] 30 units INJECT DAILY 11/27/18 [History] Liraglutide [Victoza] 1.8 ml INJECT DAILY 11/27/18 [History] Insulin Aspart [NovoLOG] 1 dose SQ BEDTIME 03/07/19 [History] atorvaSTATin [Lipitor] 40 mg PO BEDTIME 11/28/20 [History] oxyCODONE HCl/Acetaminophen [Percocet 5-325 mg Tablet] 1 - 2 each PO Q4H PRN #20 tablet 12/03/20 [Rx] Oxygen Therapy Mode: Room Air Forms: ED Department Discharge Referrals: Isela Liao [facility] [Primary Care Provider] - - Discharge Summary/Plan Comment DC Time >30 min.: Yes - Patient Data Vitals - Most Recent: Last Vital Signs Temp 98.1 F 12/31/20 05:32 Pulse 75 12/31/20 05:32 Resp 13 12/31/20 05:32 BP 119/74 12/31/20 05:32 Pulse Ox 100 12/31/20 05:32 Weight - Most Recent: 220 lb 9.6 oz I&O - Last 24 hours: Intake & Output 12/30/20 12/31/20 12/31/20 22:59 06:59 14:59 Intake Total 534 Output Total 650 Balance -116 Lab Results - Last 24 hrs: Laboratory Results - last 24 hr 12/30/20 12/30/20 12/30/20 Range/Units 20:59 20:59 21:20 WBC 9.34 (3.98-10.04) K/mm3 RBC 4.12 (3.98-5.22) M/mm3 Hgb 13.5 (11.2-15.7) gm/dl Hct 41.5 (34.1-44.9) % MCV 100.7 H (79.4-94.8) fl MCH 32.8 H (25.6-32.2) pg MCHC 32.5 (32.2-35.5) g/dl RDW Std Deviation 52.5 H (36.4-46.3) fL Plt Count 273 (182-369) K/mm3 MPV 10.9 (9.4-12.3) fl Neut % (Auto) 65.0 (34.0-71.1) % Lymph % (Auto) 22.9 (19.3-51.7) % [place] % (Auto) 8.8 (4.7-12.5) % Eos % (Auto) 2.9 (0.7-5.8) Baso % (Auto) 0.2 (0.1-1.2) % Neut # (Auto) 6.07 (1.56-6.13) K/mm3 Lymph # (Auto) 2.14 (1.18-3.74) K/mm3 [place] # (Auto) 0.82 H (0.24-0.36) K/mm3 Eos # (Auto) 0.27 (0.04-0.36) K/mm3 Baso # (Auto) 0.02 (0.01-0.08) K/mm3 Sodium 143 (136-145) mEq/L Potassium 4.4 (3.5-5.1) mEq/L Chloride 108 H (98-107) mEq/L Carbon Dioxide 21 (21-32) mEq/L Anion Gap 18.4 H (5-15) BUN 37 H (7-18) mg/dL Creatinine 2.3 H (0.55-1.02) mg/dL Est Cr Clr Drug Dosing 23.94 mL/min Estimated GFR (MDRD) 22 (>60) mL/min BUN/Creatinine Ratio 16.1 (14-18) Glucose 245 H (70-99) mg/dL POC Glucose (70-99) mg/dL Lactic Acid (0.4-2.0) mmol/L Calcium 8.9 (8.5-10.1) mg/dL Magnesium 2.1 (1.8-2.4) mg/dL Total Bilirubin 0.2 (0.2-1.0) mg/dL AST 13 L (15-37) U/L ALT 27 (14-59) U/L Alkaline Phosphatase 96 (46-116) U/L Troponin I < 0.017 (0.00-0.056) ng/mL C-Reactive Protein 0.7 (<1.0) mg/dL Total Protein 7.1 (6.4-8.2) g/dl Albumin 3.6 (3.4-5.0) g/dl Globulin 3.5 gm/dL Albumin/Globulin Ratio 1.0 (1-2) Urine Color Yellow (Yellow) Urine Appearance Slt cloudy H (Clear) Urine pH 5.5 (5.0-8.0) Ur Specific [place] 1.025 (1.005-1.030) Urine Protein Negative (Negative) Urine Glucose (UA) Negative (Negative) Urine Ketones Negative (Negative) Urine Occult Blood Negative (Negative) Urine Nitrite Negative (Negative) Urine Bilirubin Negative (Negative) Urine Urobilinogen 0.2 (0.2-1.0) Ur Leukocyte Esterase Negative (Negative) SARS-CoV-2 RNA (STEFANI) (NEGATIVE) 12/30/20 12/30/20 12/31/20 Range/Units 21:30 22:03 08:44 WBC (3.98-10.04) K/mm3 RBC (3.98-5.22) M/mm3 Hgb (11.2-15.7) gm/dl Hct (34.1-44.9) % MCV (79.4-94.8) fl MCH (25.6-32.2) pg MCHC (32.2-35.5) g/dl RDW Std Deviation (36.4-46.3) fL Plt Count (182-369) K/mm3 MPV (9.4-12.3) fl Neut % (Auto) (34.0-71.1) % Lymph % (Auto) (19.3-51.7) % [place] % (Auto) (4.7-12.5) % Eos % (Auto) (0.7-5.8) Baso % (Auto) (0.1-1.2) % Neut # (Auto) (1.56-6.13) K/mm3 Lymph # (Auto) (1.18-3.74) K/mm3 [place] # (Auto) (0.24-0.36) K/mm3 Eos # (Auto) (0.04-0.36) K/mm3 Baso # (Auto) (0.01-0.08) K/mm3 Sodium (136-145) mEq/L Potassium (3.5-5.1) mEq/L Chloride (98-107) mEq/L Carbon Dioxide (21-32) mEq/L Anion Gap (5-15) BUN (7-18) mg/dL Creatinine (0.55-1.02) mg/dL Est Cr Clr Drug Dosing mL/min Estimated GFR (MDRD) (>60) mL/min BUN/Creatinine Ratio (14-18) Glucose (70-99) mg/dL POC Glucose 121 H (70-99) mg/dL Lactic Acid 1.8 (0.4-2.0) mmol/L Calcium (8.5-10.1) mg/dL Magnesium (1.8-2.4) mg/dL Total Bilirubin (0.2-1.0) mg/dL AST (15-37) U/L ALT (14-59) U/L Alkaline Phosphatase (46-116) U/L Troponin I (0.00-0.056) ng/mL C-Reactive Protein (<1.0) mg/dL Total Protein (6.4-8.2) g/dl Albumin (3.4-5.0) g/dl Globulin gm/dL Albumin/Globulin Ratio (1-2) Urine Color (Yellow) Urine Appearance (Clear) Urine pH (5.0-8.0) Ur Specific [place] (1.005-1.030) Urine Protein (Negative) Urine Glucose (UA) (Negative) Urine Ketones (Negative) Urine Occult Blood (Negative) Urine Nitrite (Negative) Urine Bilirubin (Negative) Urine Urobilinogen (0.2-1.0) Ur Leukocyte Esterase (Negative) SARS-CoV-2 RNA (STEFANI) Negative (NEGATIVE) Med Orders - Current: Current Medications Acetaminophen (Acetaminophen 325 Mg Tab) 650 mg PO Q4H PRN PRN Reason: Pain/Fever Alprazolam (Alprazolam 0.5 Mg Tab) 0.5 mg PO QID PRN PRN Reason: Anxiety Aspirin (Aspirin 81 Mg Tab.Ec) 81 mg PO DAILY [facility] Heparin Sodium (Porcine) (Heparin Sodium 5,000 Units/Ml Vial) 5,000 units SUBCUT Q8H [facility] Lactated Ringer's (Ringers, Lactated) 1,000 mls @ 100 mls/hr IV ASDIRECTED [facility] Insulin Glargine (Insulin Glarg,Human.Rec.Analog 100 Unit/Ml) 24 unit SUBCUT DAILY [facility] Insulin Human Lispro (Insulin Lispro 100 Unit/Ml 10 Ml Vial) 0 unit SUBCUT QIDACANDBED [facility]; Protocol Ondansetron HCl (Ondansetron 4 Mg/2 Ml Sdv) 4 mg IVPUSH Q6H PRN PRN Reason: Nausea/Vomiting Oxycodone HCl (Oxycodone 5 Mg Tab) 5 mg PO Q4H PRN PRN Reason: Pain (moderate 4-6) Sodium Chloride (Sodium Chloride 0.9% 10 Ml Syringe) 10 ml FLUSH ASDIRECTED PRN PRN Reason: Keep Vein Open Last Admin: 12/30/20 21:30 Dose: 10 ml Documented by: Discontinued Medications Sodium Chloride (Normal Saline) 500 mls @ 999 mls/hr IV .BOLUS ONE Stop: 12/30/20 22:02 Last Admin: 12/30/20 21:45 Dose: 999 mls/hr Documented by: Sodium Chloride (Normal Saline) 1,000 mls @ 100 mls/hr IV ASDIRECTED [facility] Last Admin: 12/31/20 02:08 Dose: 100 mls/hr Documented by: Lisinopril (Lisinopril 10 Mg Tab) 10 mg PO DAILY [facility]
[2020-12-31 09:35] VITALS: BP 125/88; PULSE 73
[2020-12-31] MEDS ORDERED: Insulin Lispro 100 UNIT/ML 10 ML Vial SUBCUT SCH (11:00)
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
== END 2020-12-31 09:40 | disposition left against medical advice (07) ==
LOC: JD.ED 20:14 → JD.MS 23:12
PROVIDERS: ADMIT Hospitalist; ATTEND Hospitalist
DX: E86.0 Dehydration (principal); N17.9 Acute kidney failure, unspecified; I12.9 Hypertensive chronic kidney disease with stage 1 through stage 4 chronic kidney disease, or unspecified chronic kidney disease; E11.22 Type 2 diabetes mellitus with diabetic chronic kidney disease; N18.30 Chronic kidney disease, stage 3 unspecified; E78.00 Pure hypercholesterolemia, unspecified; I25.2 Old myocardial infarction; J44.9 Chronic obstructive pulmonary disease, unspecified; E66.9 Obesity, unspecified; F17.210 Nicotine dependence, cigarettes, uncomplicated; Z20.822 Contact with and (suspected) exposure to COVID-19; Z90.49 Acquired absence of other specified parts of digestive tract; Z98.890 Other specified postprocedural states; Z79.899 Other long term (current) drug therapy; Z79.82 Long term (current) use of aspirin
CPT/HCPCS: 36415; 80053; 81003; 82947; 83605; 83735; 84484; 85025; 86140; G0378; J7030; U0002

== ENCOUNTER 2021-02-02 17:42 | Emergency (ER) | payer MEDICARE, MEDICAID ==
[2021-02-02 18:04] VITALS: BP 134/93; PULSE 103
[2021-02-02] MEDS ORDERED: Oxymetazoline 0.05% Nasal Spray 30 ML Bottle NAS ONE (18:20)
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
[2021-02-02] MEDS ORDERED: LORazepam 0.5 MG Tab PO ONE (18:59)
[2021-02-02] MEDS ORDERED: Acetaminophen/HYDROcodone 325-5 MG Tab PO ONE (18:59)
== END 2021-02-02 20:14 | disposition home or self-care (01) ==
LOC: JD.ED 17:42
DX: R04.0 Epistaxis (principal); E78.00 Pure hypercholesterolemia, unspecified; I12.9 Hypertensive chronic kidney disease with stage 1 through stage 4 chronic kidney disease, or unspecified chronic kidney disease; J44.9 Chronic obstructive pulmonary disease, unspecified; K21.9 Gastro-esophageal reflux disease without esophagitis; E66.9 Obesity, unspecified; E11.22 Type 2 diabetes mellitus with diabetic chronic kidney disease; N18.9 Chronic kidney disease, unspecified; Z68.37 Body mass index [BMI] 37.0-37.9, adult; Z95.5 Presence of coronary angioplasty implant and graft; Z72.0 Tobacco use; Z79.82 Long term (current) use of aspirin; Z79.4 Long term (current) use of insulin; Z79.899 Other long term (current) drug therapy
CPT/HCPCS: 30903; 99283; A9270; C9046; 30901; 99282

== ENCOUNTER 2021-02-05 08:33 | Emergency (ER) | payer MEDICARE, MEDICAID ==
[2021-02-05 08:54] VITALS: BP 117/76; PULSE 98
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
== END 2021-02-05 10:57 | disposition home or self-care (01) ==
LOC: JD.ED 08:33
DX: Z48.00 Encounter for change or removal of nonsurgical wound dressing (principal); E78.00 Pure hypercholesterolemia, unspecified; I25.2 Old myocardial infarction; J44.9 Chronic obstructive pulmonary disease, unspecified; E11.22 Type 2 diabetes mellitus with diabetic chronic kidney disease; N18.9 Chronic kidney disease, unspecified; E66.9 Obesity, unspecified; Z72.0 Tobacco use; Z79.82 Long term (current) use of aspirin; Z79.4 Long term (current) use of insulin; Z79.899 Other long term (current) drug therapy
CPT/HCPCS: 99282

== ENCOUNTER 2021-02-07 23:32 | Emergency (ER) | payer MEDICARE, MEDICAID ==
[2021-02-07 23:51] VITALS: BP 132/99; PULSE 87
[2021-02-08] MEDS ORDERED: Oxymetazoline 0.05% Nasal Spray 30 ML Bottle NAS ONE (00:19)
[2021-02-08] MEDS ORDERED: Lidocaine 1% 10 ML MDV INJECT ONE (00:19)
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
== END 2021-02-08 01:52 | disposition home or self-care (01) ==
LOC: JD.ED 23:32
DX: R04.0 Epistaxis (principal); E78.00 Pure hypercholesterolemia, unspecified; I25.2 Old myocardial infarction; J44.9 Chronic obstructive pulmonary disease, unspecified; E11.22 Type 2 diabetes mellitus with diabetic chronic kidney disease; N18.9 Chronic kidney disease, unspecified; E66.9 Obesity, unspecified; Z68.37 Body mass index [BMI] 37.0-37.9, adult; Z95.5 Presence of coronary angioplasty implant and graft; Z72.0 Tobacco use; Z79.82 Long term (current) use of aspirin; Z79.4 Long term (current) use of insulin; Z79.899 Other long term (current) drug therapy
CPT/HCPCS: 96374; 99283; A9270

== ENCOUNTER 2021-03-02 18:05 | Emergency (ER) | payer MEDICARE, MEDICAID ==
[2021-03-02 18:16] VITALS: BP 134/78; PULSE 78
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
[2021-03-02] MEDS ORDERED: Lidocaine 1% with EPINEPHrine 1:100,000 10 ML MDV ONE (20:25)
[2021-03-02] MEDS ORDERED: Lidocaine 1% with EPINEPHrine 1:100,000 10 ML MDV INJECT ONE (20:55)
--- NOTE | 2021-03-02 21:13 | PCM.OPNOTE ---
- General Post-Op/Procedure Note Date of Surgery/Procedure: 03/02/21 Operative Procedure(s): Excision of left medial labia minora cyst Findings: Left medial labia minora cyst measuring approximately 1 x 2 cm to the 3 o'clock position approximately 3 to 4 cm from the vaginal introitus. Suspect that the cyst was an epidermal inclusion cyst filled with mostly sebaceous fluid. There was a small amount of thick clumpy discharge with the sebaceous fluid. Pre Op Diagnosis: Left medial labia minora vaginal cyst Post-Op Diagnosis: Same, suspected epidermal inclusion cyst of the left medial labia minora Anesthesia Technique: Local Primary Surgeon: Freddie Hernandez Pathology: None Fluid Replacement, Intraop: 0 Output, Urine Amount: 0 EBL in mLs: 15 Complications: None Condition: Good Free Text/Narrative:: Patient reports that she has had a small mass on the labia minora that she has noticed for the last several days. She states that it has become quite painful during this time. She rates the pain at 10/10 at its worst. She still describes the pain as a sharp pain that does not radiate anywhere else. She states that it has been difficult to sit with this pain. She has not noted any drainage or bleeding from the area. She denies any urinary symptoms. She denies any problems with bowel movements. Physical exam General: No acute distress, alert and oriented Lungs: Unlabored breathing Heart: Regular rate Pelvis: Left medial labia minora with cyst present at the 3 o'clock position that measures approximately 2 x 1 cm. The cyst is painful to the touch without any drainage. There is no erythema over the cyst. There is no evidence of folliculitis or area where the cyst arises from. Suspect that this is an epidermal inclusion cyst based on the firm nature and no evidence of area of origination of the cyst. Right labia minora normal in appearance. Grossly normal-appearing labia majora bilaterally. Procedure in detail: On initial exam patient was found to have a 1 x 2 cm left medial labia minora cyst that was suspected to be a epidermal inclusion cyst. Patient was counseled on treatment options including excision of the cyst. Patient desired to have the cyst excised in the emergency department today. Patient was counseled on the risks of the procedure including infection, bleeding, nerve injury and injury to surrounding structures including skin and underlying tissue. Consent was signed with a witness present. Patient was placed in dorsal lithotomy position using stirrups. The left labia minora and the cyst was visualized and the area surrounding the skin was cleansed with a Betadine swab x3. The skin was then injected with local anesthetic with 1% lidocaine with epinephrine with a total of 3 mL injected. The skin overlying the cyst was then incised with an approximately 1 cm incision and the contents of the cyst were able to be extruded. The majority of the contents of the cyst were a yellowish colored fluid mixed with thick white clumpy discharge. Suspect that this was an epidermal inclusion cyst. The cyst wall was then removed without difficulty. Pressure was applied to the incision and hemostasis was achieved. Dermabond skin glue was applied over the incision. The procedure was completed at this time. Total EBL was approximately 15 mL. Patient tolerated procedure without difficulty. Patient stable for discharge at this time. She will follow up in the office in 1 to 2 weeks for routine postprocedural visit. Patient given prescription for oxycodone 5 to 10 mg every 4 hours as needed for pain that is not able to be controlled with Tylenol. Patient was given a total of 12 tablets. Freddie Hernandez MD 9:13 PM 03/02/2021
== END 2021-03-02 21:19 | disposition home or self-care (01) ==
LOC: JD.ED 18:05
DX: N89.8 Other specified noninflammatory disorders of vagina (principal); E78.00 Pure hypercholesterolemia, unspecified; I25.2 Old myocardial infarction; J44.9 Chronic obstructive pulmonary disease, unspecified; E11.22 Type 2 diabetes mellitus with diabetic chronic kidney disease; N18.9 Chronic kidney disease, unspecified; E66.9 Obesity, unspecified; Z68.37 Body mass index [BMI] 37.0-37.9, adult; Z72.0 Tobacco use; Z79.82 Long term (current) use of aspirin; Z79.4 Long term (current) use of insulin; Z79.899 Other long term (current) drug therapy
CPT/HCPCS: 81001; 99283

== ENCOUNTER 2021-06-25 17:47 | Emergency (ER) | payer MEDICARE, MEDICAID | END 2021-06-25 19:00 | disposition left against medical advice (07) | LOC: JD.ED 17:47 | DX: Z53.21 Procedure and treatment not carried out due to patient leaving prior to being seen by health care provider (principal) ==

== ENCOUNTER 2022-01-14 19:20 | Emergency (ER) | payer MEDICARE, MEDICAID ==
[2022-01-14 20:22] VITALS: BP 102/69; PULSE 85
== END 2022-01-14 23:05 | disposition home or self-care (01) ==
LOC: JD.ED 19:20
DX: N90.89 Other specified noninflammatory disorders of vulva and perineum (principal); I25.10 Atherosclerotic heart disease of native coronary artery without angina pectoris; I25.2 Old myocardial infarction; F17.210 Nicotine dependence, cigarettes, uncomplicated; E11.9 Type 2 diabetes mellitus without complications; E66.9 Obesity, unspecified; Z68.39 Body mass index [BMI] 39.0-39.9, adult; Z79.899 Other long term (current) drug therapy; Z79.82 Long term (current) use of aspirin; Z79.4 Long term (current) use of insulin; Z90.49 Acquired absence of other specified parts of digestive tract; Z90.710 Acquired absence of both cervix and uterus
CPT/HCPCS: 99282

== ENCOUNTER 2022-06-04 17:00 | Emergency (ER) | payer MEDICARE, MEDICAID ==
[2022-06-04 17:30] VITALS: BP 110/80; PULSE 81
[2022-06-04] MEDS ORDERED: Ketorolac 30 MG/ML SDV IM ONE (18:07)
== END 2022-06-04 18:50 | disposition home or self-care (01) ==
LOC: JD.ED 17:00
DX: S93.402A Sprain of unspecified ligament of left ankle, initial encounter (principal); I25.10 Atherosclerotic heart disease of native coronary artery without angina pectoris; J44.9 Chronic obstructive pulmonary disease, unspecified; E78.00 Pure hypercholesterolemia, unspecified; I25.2 Old myocardial infarction; E11.9 Type 2 diabetes mellitus without complications; F17.210 Nicotine dependence, cigarettes, uncomplicated; E66.9 Obesity, unspecified; Z68.39 Body mass index [BMI] 39.0-39.9, adult; Z79.82 Long term (current) use of aspirin; Z79.899 Other long term (current) drug therapy; Z79.4 Long term (current) use of insulin; Z90.49 Acquired absence of other specified parts of digestive tract; Z90.710 Acquired absence of both cervix and uterus
CPT/HCPCS: 29515; 73610; 96372; 99283; J1885

== ENCOUNTER 2022-06-27 14:31 | Emergency (ER) | payer MEDICARE, MEDICAID ==
[2022-06-27 14:40] VITALS: BP 144/80; PULSE 114
[2022-06-27] MEDS ORDERED: Sodium Chloride 0.9% 10 ML Syringe FLUSH PRN (15:22)
[2022-06-27] MEDS ORDERED: Ondansetron 4 MG/2 ML SDV IVPUSH ONE (15:24)
[2022-06-27] MEDS ORDERED: HYDROmorphone 1 MG/ML Syringe IVPUSH STA (15:24)
[2022-06-27] MEDS ORDERED: Sodium Chloride 0.9% 1,000 ML IV ONE (15:24)
[2022-06-27] MEDS ORDERED: Orphenadrine 100 MG Tab.ER PO ONE (15:40)
[2022-06-27] MEDS ORDERED: HYDROmorphone 1 MG/ML Syringe IM ONE (15:40)
[2022-06-27] MEDS ORDERED: Acetaminophen/oxyCODONE 325-5 MG Tab PO ONE (16:36)
== END 2022-06-27 17:55 | disposition home or self-care (01) ==
LOC: JD.ED 14:31
DX: M54.41 Lumbago with sciatica, right side (principal); M54.42 Lumbago with sciatica, left side; I25.10 Atherosclerotic heart disease of native coronary artery without angina pectoris; E78.00 Pure hypercholesterolemia, unspecified; I25.2 Old myocardial infarction; J44.9 Chronic obstructive pulmonary disease, unspecified; E11.22 Type 2 diabetes mellitus with diabetic chronic kidney disease; N18.9 Chronic kidney disease, unspecified; F17.210 Nicotine dependence, cigarettes, uncomplicated; E66.9 Obesity, unspecified; Z68.39 Body mass index [BMI] 39.0-39.9, adult; Z79.899 Other long term (current) drug therapy; Z79.4 Long term (current) use of insulin
CPT/HCPCS: 96372; 99283; A9270; J1170

== ENCOUNTER 2023-01-14 17:30 | Emergency (ER) | payer MEDICARE, MEDICAID ==
[2023-01-14 18:20] VITALS: BP 134/89; PULSE 79
== END 2023-01-14 18:21 | disposition home or self-care (01) ==
LOC: JD.ED 17:30
DX: H11.31 Conjunctival hemorrhage, right eye (principal); E78.00 Pure hypercholesterolemia, unspecified; I25.10 Atherosclerotic heart disease of native coronary artery without angina pectoris; E11.22 Type 2 diabetes mellitus with diabetic chronic kidney disease; N18.9 Chronic kidney disease, unspecified; I25.2 Old myocardial infarction; Z95.5 Presence of coronary angioplasty implant and graft; E66.9 Obesity, unspecified; Z68.41 Body mass index [BMI] 40.0-44.9, adult; Z79.82 Long term (current) use of aspirin; Z79.4 Long term (current) use of insulin; Z79.899 Other long term (current) drug therapy
CPT/HCPCS: 99283

== ENCOUNTER 2023-04-20 09:18 | Emergency (ER) | payer MEDICARE ==
[2023-04-20] MEDS ORDERED: Sodium Chloride 0.9% 10 ML Syringe FLUSH PRN (10:14)
[2023-04-20 10:29] LABS: BASOPHILS PERCENT AUTO 0.4 % (0.0-1.0); EOSINOPHILS ABSOLUTE AUTO 0.1 K/mm3 (0.0-0.4); EOSINOPHILS PERCENT AUTO 1.1 % (0.0-6.0); HEMATOCRIT 42.9 % (37.0-47.0); HEMOGLOBIN 14.2 gm/dl (12.0-16.0); IMMATURE GRAN ABSOLUTE AUTO 0.04 K/mm3 (0.00-0.05); IMMATURE GRAN PERCENT AUTO 0.4 % (0.0-0.4); LYMPHOCYTES ABSOLUTE AUTO 1.5 K/mm3 (1.0-4.8); MEAN CORPUSCULAR HEMOGLOBIN 32.4 pg (28.0-32.0); MEAN CORPUSCULAR HGB CONC 33.1 g/dl (32.0-36.0); MEAN CORPUSCULAR VOLUME 97.9 fl (83.0-99.0); MEAN PLATELET VOLUME 11.2 fl (9.4-12.3); MONOCYTES ABSOLUTE AUTO 0.8 K/mm3 (0.0-0.8); MONOCYTES PERCENT AUTO 7.5 % (0.0-8.0); NEUTROPHILS ABSOLUTE AUTO 7.7 K/mm3 (1.8-7.7); NEUTROPHILS PERCENT AUTO 75.6 % (41.0-71.0); PLATELET COUNT,PLT 179 K/mm3 (150-400); RED BLOOD CELL COUNT 4.38 M/mm3 (4.10-5.30); WHITE BLOOD CELL COUNT,WBC 10.22 K/mm3 (3.9-11.3)
[2023-04-20 10:47] LABS: A/G RATIO 0.9 (1-2); ALBUMIN 3.5 g/dl (3.4-5.0); ANION GAP 16.7 (5-15); BILIRUBIN TOTAL 0.4 mg/dL (0.2-1.0); BUN/CREATININE RATIO 18.9 (14-18); CALCIUM 9.6 mg/dL (8.5-10.1); CREATININE 1.9 mg/dL (0.55-1.02); EST CRCL DRUG DOSING (CG) 28.33 mL/min; MAGNESIUM 2.2 mg/dL (1.8-2.4); PROTEIN TOTAL,TP 7.3 g/dl (6.4-8.2)
[2023-04-20 10:52] LABS: POTASSIUM,K 4.7 mEq/L (3.5-5.1)
[2023-04-20] MEDS ORDERED: Alum Hydrox/Mag Hydrox/Simeth 30 ML, Lidocaine 2% 15 ML PO ONE ×2 (11:08)
[2023-04-20 11:22] LABS: INR 1.08; PROTHROMBIN TIME 11.5 SECONDS (9.7-12.0)
[2023-04-20 11:30] LABS: D-DIMER QUANTITATIVE < 0.19 mg/L (0.19-0.50)
[2023-04-20] MEDS ORDERED: Pantoprazole 40 MG in Sodium Chloride 0.9% 100 ML IV ONE (11:51)
[2023-04-20] MEDS ORDERED: Pantoprazole 40 MG Vial IVPUSH ONE (12:16)
[2023-04-20 13:26] VITALS: BP 105/71; PULSE 71
== END 2023-04-20 13:23 | disposition home or self-care (01) ==
LOC: JD.ED 09:18
DX: K21.9 Gastro-esophageal reflux disease without esophagitis (principal); F17.210 Nicotine dependence, cigarettes, uncomplicated; I25.10 Atherosclerotic heart disease of native coronary artery without angina pectoris; E78.00 Pure hypercholesterolemia, unspecified; I25.2 Old myocardial infarction; E11.9 Type 2 diabetes mellitus without complications; E66.9 Obesity, unspecified; Z68.41 Body mass index [BMI] 40.0-44.9, adult; Z79.899 Other long term (current) drug therapy; Z79.82 Long term (current) use of aspirin; Z79.4 Long term (current) use of insulin
CPT/HCPCS: 36415; 71045; 80053; 83735; 84484; 85025; 85379; 85610; 93005; 96374; 99284; A9270; C9113; J3490; 93010

== ENCOUNTER 2023-06-25 14:40 | Emergency (ER) | payer MEDICARE ==
[2023-06-25] MEDS ORDERED: Acetaminophen 325 MG Tab PO ONE (17:32)
[2023-06-25 17:59] LABS: CORONAVIRUS COVID-19 NAA POSITIVE (NEGATIVE); INFLUENZA A NAA NEGATIVE (NEGATIVE); RESPIRATORY SYNCYTIAL VIR NAA NEGATIVE (NEGATIVE)
[2023-06-25 20:22] VITALS: BP 140/97; PULSE 105
== END 2023-06-25 19:16 | disposition home or self-care (01) ==
LOC: JD.ED 14:40
DX: U07.1 COVID-19 (principal); I25.10 Atherosclerotic heart disease of native coronary artery without angina pectoris; I25.2 Old myocardial infarction; J44.9 Chronic obstructive pulmonary disease, unspecified; K21.9 Gastro-esophageal reflux disease without esophagitis; E11.22 Type 2 diabetes mellitus with diabetic chronic kidney disease; N18.9 Chronic kidney disease, unspecified; E66.9 Obesity, unspecified; Z95.5 Presence of coronary angioplasty implant and graft; Z90.710 Acquired absence of both cervix and uterus; Z79.82 Long term (current) use of aspirin; Z79.4 Long term (current) use of insulin; Z79.84 Long term (current) use of oral hypoglycemic drugs; Z79.899 Other long term (current) drug therapy; Z20.822 Contact with and (suspected) exposure to COVID-19; Z68.39 Body mass index [BMI] 39.0-39.9, adult
CPT/HCPCS: 0241U; 99284; A9270

== ENCOUNTER 2023-06-26 12:12 | Emergency (ER) | payer MEDICARE ==
[2023-06-26 13:04] LABS: BASOPHILS PERCENT AUTO 0.6 % (0.0-1.0); EOSINOPHILS PERCENT AUTO 0.4 % (0.0-6.0); HEMATOCRIT 46.2 % (37.0-47.0); HEMOGLOBIN 15.6 gm/dl (12.0-16.0); IMMATURE GRAN ABSOLUTE AUTO 0.02 K/mm3 (0.00-0.05); IMMATURE GRAN PERCENT AUTO 0.4 % (0.0-0.4); LYMPHOCYTES PERCENT AUTO 19.9 % (24.0-44.0); MEAN CORPUSCULAR HGB CONC 33.8 g/dl (32.0-36.0); MEAN CORPUSCULAR VOLUME 97.7 fl (83.0-99.0); MEAN PLATELET VOLUME 10.5 fl (9.4-12.3); MONOCYTES ABSOLUTE AUTO 0.8 K/mm3 (0.0-0.8); MONOCYTES PERCENT AUTO 14.9 % (0.0-8.0); NEUTROPHILS ABSOLUTE AUTO 3.3 K/mm3 (1.8-7.7); NEUTROPHILS PERCENT AUTO 63.8 % (41.0-71.0); PLATELET COUNT,PLT 120 K/mm3 (150-400); RED BLOOD CELL COUNT 4.73 M/mm3 (4.10-5.30); WHITE BLOOD CELL COUNT,WBC 5.23 K/mm3 (3.9-11.3)
[2023-06-26 13:30] LABS: INR 1.06; PROTHROMBIN TIME 11.3 SECONDS (9.7-12.0)
[2023-06-26 13:31] LABS: PTT,PARTIAL THROMBOPLSTIN TIME 28.7 SECONDS (21.7-31.4)
[2023-06-26 14:28] VITALS: BP 146/94; PULSE 91
== END 2023-06-26 14:22 | disposition home or self-care (01) ==
LOC: JD.ED 12:12
DX: U07.1 COVID-19 (principal); R04.0 Epistaxis; E78.00 Pure hypercholesterolemia, unspecified; I10 Essential (primary) hypertension; I25.2 Old myocardial infarction; K21.9 Gastro-esophageal reflux disease without esophagitis; E11.9 Type 2 diabetes mellitus without complications; Z79.4 Long term (current) use of insulin; Z79.82 Long term (current) use of aspirin; Z68.39 Body mass index [BMI] 39.0-39.9, adult
CPT/HCPCS: 30903; 36415; 85025; 85610; 85730; 99283

== ENCOUNTER 2023-06-26 19:32 | Emergency (ER) | payer MEDICARE ==
[2023-06-26 20:38] VITALS: BP 161/98; PULSE 101
== END 2023-06-26 20:39 | disposition home or self-care (01) ==
LOC: JD.ED 19:32
DX: U07.1 COVID-19 (principal); R04.0 Epistaxis; E78.00 Pure hypercholesterolemia, unspecified; I25.2 Old myocardial infarction; I25.10 Atherosclerotic heart disease of native coronary artery without angina pectoris; J44.9 Chronic obstructive pulmonary disease, unspecified; E11.9 Type 2 diabetes mellitus without complications; E66.9 Obesity, unspecified; Z95.5 Presence of coronary angioplasty implant and graft; Z90.49 Acquired absence of other specified parts of digestive tract; Z90.710 Acquired absence of both cervix and uterus; Z79.82 Long term (current) use of aspirin; Z79.899 Other long term (current) drug therapy
CPT/HCPCS: 30903; 99283-25

== ENCOUNTER 2023-06-29 16:04 | Emergency (ER) | payer MEDICARE, MEDICAID ==
[2023-06-29] MEDS ORDERED: Acetaminophen 325 MG Tab PO ONE (17:30)
[2023-06-29] MEDS ORDERED: Oxymetazoline 0.05% Nasal Spray 30 ML Bottle NAS ONE (17:30)
[2023-06-29 19:34] VITALS: BP 136/78; PULSE 86
== END 2023-06-29 19:30 | disposition home or self-care (01) ==
LOC: JD.ED 16:04
DX: U07.1 COVID-19 (principal); R04.0 Epistaxis; I10 Essential (primary) hypertension; E78.00 Pure hypercholesterolemia, unspecified; I25.10 Atherosclerotic heart disease of native coronary artery without angina pectoris; I25.2 Old myocardial infarction; J44.9 Chronic obstructive pulmonary disease, unspecified; K21.9 Gastro-esophageal reflux disease without esophagitis; E11.9 Type 2 diabetes mellitus without complications; Z79.82 Long term (current) use of aspirin; Z79.4 Long term (current) use of insulin; Z95.5 Presence of coronary angioplasty implant and graft; Z90.710 Acquired absence of both cervix and uterus; Z79.899 Other long term (current) drug therapy
CPT/HCPCS: 30901; 99283; A9270

== ENCOUNTER 2023-11-25 17:20 | Emergency (ER) | payer MEDICARE, MEDICAID ==
[2023-11-25 17:29] VITALS: BP 110/67; PULSE 83
[2023-11-25 18:01] LABS: BASOPHILS PERCENT AUTO 0.3 % (0.0-1.0); EOSINOPHILS ABSOLUTE AUTO 0.3 K/mm3 (0.0-0.4); EOSINOPHILS PERCENT AUTO 3.5 % (0.0-6.0); HEMATOCRIT 42.6 % (37.0-47.0); HEMOGLOBIN 14.2 gm/dl (12.0-16.0); IMMATURE GRAN ABSOLUTE AUTO 0.04 K/mm3 (0.00-0.05); IMMATURE GRAN PERCENT AUTO 0.4 % (0.0-0.4); LYMPHOCYTES ABSOLUTE AUTO 2.1 K/mm3 (1.0-4.8); LYMPHOCYTES PERCENT AUTO 22.3 % (24.0-44.0); MEAN CORPUSCULAR HEMOGLOBIN 31.9 pg (28.0-32.0); MEAN CORPUSCULAR HGB CONC 33.3 g/dl (32.0-36.0); MEAN CORPUSCULAR VOLUME 95.7 fl (83.0-99.0); MEAN PLATELET VOLUME 11.3 fl (9.4-12.3); MONOCYTES ABSOLUTE AUTO 0.6 K/mm3 (0.0-0.8); MONOCYTES PERCENT AUTO 6.7 % (0.0-8.0); NEUTROPHILS ABSOLUTE AUTO 6.2 K/mm3 (1.8-7.7); NEUTROPHILS PERCENT AUTO 66.8 % (41.0-71.0); PLATELET COUNT,PLT 143 K/mm3 (150-400); RED BLOOD CELL COUNT 4.45 M/mm3 (4.10-5.30); WHITE BLOOD CELL COUNT,WBC 9.24 K/mm3 (3.9-11.3)
[2023-11-25] MEDS: Aspirin 81 MG Tab.Chew PO ONE (18:20)
[2023-11-25] MEDS: Sodium Chloride 0.9% 10 ML Syringe FLUSH PRN (18:21)
[2023-11-25] MEDS: HYDROmorphone 0.5 MG/0.5 ML Syringe IVPUSH ONE (18:21)
[2023-11-25 18:30] LABS: A/G RATIO 0.9 (1-2); ALBUMIN 3.1 g/dl (3.4-5.0); ANION GAP 13.1 (5-15); BILIRUBIN TOTAL 0.2 mg/dL (0.2-1.0); BUN/CREATININE RATIO 13.2 (14-18); CALCIUM 9.1 mg/dL (8.5-10.1); CREATININE 1.9 mg/dL (0.55-1.02); POTASSIUM,K 4.1 mEq/L (3.5-5.1); PROTEIN TOTAL,TP 6.7 g/dl (6.4-8.2)
[2023-11-25] MEDS: Sodium Chloride 0.9% 500 ML IV ONE (19:23)
[2023-11-25] MEDS: Iopamidol 755 Mg/ML 100 ML Bottle IVPUSH ONE (19:33)
[2023-11-25] MEDS ORDERED: Sodium Chloride 0.9% 100 ML IV SCH (19:45)
== END 2023-11-25 21:32 | disposition home or self-care (01) ==
LOC: JD.ED 17:20
DX: R07.89 Other chest pain (principal); F17.210 Nicotine dependence, cigarettes, uncomplicated; I25.10 Atherosclerotic heart disease of native coronary artery without angina pectoris; I25.2 Old myocardial infarction; E78.00 Pure hypercholesterolemia, unspecified; E11.22 Type 2 diabetes mellitus with diabetic chronic kidney disease; N18.9 Chronic kidney disease, unspecified; E66.9 Obesity, unspecified; Z79.82 Long term (current) use of aspirin; Z79.899 Other long term (current) drug therapy; Z79.4 Long term (current) use of insulin; J44.9 Chronic obstructive pulmonary disease, unspecified; Z95.5 Presence of coronary angioplasty implant and graft; Z68.37 Body mass index [BMI] 37.0-37.9, adult
CPT/HCPCS: 36415; 71045; 71275; 80053; 84484; 85025; 85379; 93005; 96361; 96374; 99285; A9270; J1170; J3490; J7030; Q9967; 93010; 99284

== ENCOUNTER 2024-04-06 07:48 | Day surgery (SDC) | payer MEDICARE, MEDICAID ==
[~2024-04-06 07:48] MED LIST: Lidocaine 1% 4 ML ONE; Lidocaine 1% PF 2 ML SDV ONE; Midazolam 1 MG/ML 2 ML SDV ONE; Propofol 200 MG/20 ML SDV ONE; Sodium Chloride 0.9% 10 ML Syringe FLUSH PRN
[2024-04-06] MEDS: Lactated Ringers 1,000 ML IV SCH (08:30)
[2024-04-06] MEDS ORDERED: Propofol 200 MG/20 ML SDV ONE (08:57)
[2024-04-06] MEDS ORDERED: Sodium Chloride 0.9% 10 ML Syringe FLUSH SCH (09:00)
[2024-04-06] MEDS ORDERED: Phenylephrine 1% 10 MG/ML SDV ONE (09:10)
[2024-04-06 10:44] VITALS: BP 110/67; PULSE 64
== END 2024-04-06 10:40 | disposition home or self-care (01) ==
LOC: JD.SDS 07:48
PROVIDERS: ATTEND Surgery
DX: Z12.11 Encounter for screening for malignant neoplasm of colon (principal); D12.2 Benign neoplasm of ascending colon; K63.5 Polyp of colon; K62.1 Rectal polyp; K57.30 Diverticulosis of large intestine without perforation or abscess without bleeding; K21.9 Gastro-esophageal reflux disease without esophagitis; I25.10 Atherosclerotic heart disease of native coronary artery without angina pectoris; J45.909 Unspecified asthma, uncomplicated; I12.9 Hypertensive chronic kidney disease with stage 1 through stage 4 chronic kidney disease, or unspecified chronic kidney disease; E11.22 Type 2 diabetes mellitus with diabetic chronic kidney disease; N18.30 Chronic kidney disease, stage 3 unspecified; E66.9 Obesity, unspecified; F17.200 Nicotine dependence, unspecified, uncomplicated; Z79.4 Long term (current) use of insulin; Z79.899 Other long term (current) drug therapy
CPT/HCPCS: 43239; 45380; 45385; 88305; J2250; J2371; J2704; J7120; 00813; J3490

== ENCOUNTER 2024-05-26 14:11 | Emergency (ER) | payer MEDICARE, MEDICAID ==
[2024-05-26] MEDS: Lidocaine/Epineph/Tetracaine 3 ML Syringe TOP ONE (15:10)
[2024-05-26] MEDS: Lidocaine 1% 5 ML VIAL INJECT ONE (17:33)
[2024-05-26 17:41] VITALS: BP 137/89; PULSE 72
== END 2024-05-26 17:40 | disposition home or self-care (01) ==
LOC: JD.ED 14:11
DX: N90.7 Vulvar cyst (principal); I25.10 Atherosclerotic heart disease of native coronary artery without angina pectoris; I25.2 Old myocardial infarction; J44.9 Chronic obstructive pulmonary disease, unspecified; E78.00 Pure hypercholesterolemia, unspecified; K21.9 Gastro-esophageal reflux disease without esophagitis; E11.22 Type 2 diabetes mellitus with diabetic chronic kidney disease; N18.9 Chronic kidney disease, unspecified; E66.9 Obesity, unspecified; F17.210 Nicotine dependence, cigarettes, uncomplicated; Z90.49 Acquired absence of other specified parts of digestive tract; Z90.710 Acquired absence of both cervix and uterus; Z79.4 Long term (current) use of insulin; Z79.899 Other long term (current) drug therapy; Z68.35 Body mass index [BMI] 35.0-35.9, adult
CPT/HCPCS: 56405; 99283-25; A9270-GY

== ENCOUNTER 2024-10-30 21:31 | Emergency (ER) | payer MEDICARE, MEDICAID ==
[2024-10-30 21:51] VITALS: PULSE 85
[2024-10-30] MEDS ORDERED: Sodium Chloride 0.9% 10 ML Syringe FLUSH PRN (22:43)
[2024-10-30 22:52] LABS: BASOPHILS PERCENT AUTO 0.3 % (0.0-1.0); EOSINOPHILS ABSOLUTE AUTO 0.2 K/mm3 (0.0-0.4); EOSINOPHILS PERCENT AUTO 2.1 % (0.0-6.0); HEMATOCRIT 42.4 % (37.0-47.0); HEMOGLOBIN 13.9 gm/dl (12.0-16.0); IMMATURE GRAN ABSOLUTE AUTO 0.03 K/mm3 (0.00-0.05); IMMATURE GRAN PERCENT AUTO 0.3 % (0.0-0.4); LYMPHOCYTES ABSOLUTE AUTO 2.7 K/mm3 (1.0-4.8); LYMPHOCYTES PERCENT AUTO 24.3 % (24.0-44.0); MEAN CORPUSCULAR HEMOGLOBIN 32.5 pg (28.0-32.0); MEAN CORPUSCULAR HGB CONC 32.8 g/dl (32.0-36.0); MEAN CORPUSCULAR VOLUME 99.1 fl (83.0-99.0); MEAN PLATELET VOLUME 12.2 fl (9.4-12.3); MONOCYTES ABSOLUTE AUTO 0.8 K/mm3 (0.0-0.8); MONOCYTES PERCENT AUTO 7.4 % (0.0-8.0); NEUTROPHILS ABSOLUTE AUTO 7.4 K/mm3 (1.8-7.7); NEUTROPHILS PERCENT AUTO 65.6 % (41.0-71.0); PLATELET COUNT,PLT 155 K/mm3 (150-400); RED BLOOD CELL COUNT 4.28 M/mm3 (4.10-5.30)
[2024-10-30] MEDS: Aspirin 81 MG Tab.Chew PO ONE (22:52)
[2024-10-30 23:09] LABS: A/G RATIO 0.9 (1-2); ALBUMIN 3.4 g/dl (3.4-5.0); ANION GAP 16.6 (5-15); BILIRUBIN TOTAL 0.3 mg/dL (0.2-1.0); BUN/CREATININE RATIO 17.1 (14-18); CALCIUM 9.1 mg/dL (8.5-10.1); CREATININE 1.7 mg/dL (0.55-1.02); EST CRCL DRUG DOSING (CG) 29.57 mL/min; MAGNESIUM 2.2 mg/dL (1.8-2.4); POTASSIUM,K 3.6 mEq/L (3.5-5.1)
[2024-10-31 01:34] VITALS: BP 118/73
== END 2024-10-31 01:00 | disposition home or self-care (01) ==
LOC: JD.ED 21:31
DX: R07.9 Chest pain, unspecified (principal); I25.10 Atherosclerotic heart disease of native coronary artery without angina pectoris; E78.00 Pure hypercholesterolemia, unspecified; I25.2 Old myocardial infarction; N18.9 Chronic kidney disease, unspecified; E11.22 Type 2 diabetes mellitus with diabetic chronic kidney disease; Z79.899 Other long term (current) drug therapy; Z79.4 Long term (current) use of insulin; Z90.49 Acquired absence of other specified parts of digestive tract; Z95.5 Presence of coronary angioplasty implant and graft
CPT/HCPCS: 36415; 71045; 80053; 83735; 83880; 84484; 85025; 87428; 93005; 99285; A9270; 93010; 99283

== ENCOUNTER 2025-05-23 19:31 | Emergency (ER) | payer MEDICARE, MEDICAID ==
[2025-05-23 20:13] LABS: BASE EXCESS ARTERIAL -3.5 (-2-2.0); BICARBONATE,ARTERIAL 17.2 meq/L (22.0-26.0); O2 SATURATION ARTERIAL 93.6 % (96.0-97.0); PCO2 ARTERIAL 22.0 mmHg (35.0-45.0); PO2 ARTERIAL 63.0 mmHg (80.0-100.0)
[2025-05-23] MEDS: methylPREDNISolone Sodium Succinate 125 MG/2 ML SDV IVPUSH ONE (20:27)
[2025-05-23 20:30] LABS: BASOPHILS ABSOLUTE AUTO 0.0 K/mm3 (0.0-0.2); BASOPHILS PERCENT AUTO 0.4 % (0.0-1.0); EOSINOPHILS ABSOLUTE AUTO 0.2 K/mm3 (0.0-0.4); EOSINOPHILS PERCENT AUTO 1.8 % (0.0-6.0); IMMATURE GRAN ABSOLUTE AUTO 0.03 K/mm3 (0.00-0.05); IMMATURE GRAN PERCENT AUTO 0.3 % (0.0-0.4); LYMPHOCYTES ABSOLUTE AUTO 1.7 K/mm3 (1.0-4.8); LYMPHOCYTES PERCENT AUTO 18.3 % (24.0-44.0); MEAN PLATELET VOLUME 11.9 fl (9.4-12.3); MONOCYTES ABSOLUTE AUTO 0.8 K/mm3 (0.0-0.8); MONOCYTES PERCENT AUTO 8.8 % (0.0-8.0); NEUTROPHILS ABSOLUTE AUTO 6.6 K/mm3 (1.8-7.7); NEUTROPHILS PERCENT AUTO 70.4 % (41.0-71.0); NRBC ABSOLUTE 0.00 (0.00-0.02); NRBC PERCENT 0.0 % (0.0-0.2); PLATELET COUNT,PLT 125 K/mm3 (150-400); RED BLOOD CELL COUNT 4.96 M/mm3 (4.10-5.30); WHITE BLOOD CELL COUNT,WBC 9.34 K/mm3 (3.9-11.3)
[2025-05-23] MEDS: cefTRIAXone 1 GM in Water For Injection, Sterile 10 ML IVPUSH STA (20:30)
[2025-05-23 20:53] LABS: A/G RATIO 0.8 (1-2); ALANINE AMINOTRANSFERASE,ALT 17 U/L (14-59); BLOOD UREA NITROGEN,BUN 22 mg/dL (7-18); CARBON DIOXIDE,CO2 22 mEq/L (21-32); CHLORIDE,CL 105 mEq/L (98-107); CREATININE 1.4 mg/dL (0.55-1.02); EST CRCL DRUG DOSING (CG) 37.56 mL/min; ESTIMATED GFR 44 mL/min (>60); GLUCOSE RANDOM 176 mg/dL (70-99); PROTEIN TOTAL,TP 7.5 g/dl (6.4-8.2); SODIUM,NA 141 mEq/L (136-145)
[2025-05-23 20:56] LABS: INR 1.11
[2025-05-23 21:01] LABS: ETHANOL BLOOD MEDICAL 0.00 gm% (0.00); TROPONIN I HIGH SENSITIVITY < 4 pg/mL (<=51)
[2025-05-23 21:02] LABS: ASPARTATE AMNIOTRANSFERASE,AST 19 U/L (15-37); CREATINE KINASE,CK 41 U/L (26-192); POTASSIUM,K 4.1 mEq/L (3.5-5.1)
[2025-05-23 21:13] LABS: BILIRUBIN TOTAL 0.5 mg/dL (0.2-1.0)
[2025-05-23 22:19] VITALS: BP 129/86; PULSE 88
== END 2025-05-23 21:50 | disposition home or self-care (01) ==
LOC: JD.ED 19:31
DX: J44.1 Chronic obstructive pulmonary disease with (acute) exacerbation (principal); I13.10 Hypertensive heart and chronic kidney disease without heart failure, with stage 1 through stage 4 chronic kidney disease, or unspecified chronic kidney disease; I25.10 Atherosclerotic heart disease of native coronary artery without angina pectoris; E11.22 Type 2 diabetes mellitus with diabetic chronic kidney disease; N18.9 Chronic kidney disease, unspecified; F17.210 Nicotine dependence, cigarettes, uncomplicated; K21.9 Gastro-esophageal reflux disease without esophagitis; E66.9 Obesity, unspecified; Z79.4 Long term (current) use of insulin; Z79.84 Long term (current) use of oral hypoglycemic drugs; Z79.899 Other long term (current) drug therapy; Z95.5 Presence of coronary angioplasty implant and graft; Z90.49 Acquired absence of other specified parts of digestive tract; Z90.89 Acquired absence of other organs; Z68.29 Body mass index [BMI] 29.0-29.9, adult
CPT/HCPCS: 36415; 36600; 71045; 80053; 80307; 82550; 82803; 83690; 83735; 84484; 85025; 85610; 87040; 93005; 94640; 96365; 96375; 99285; A9270; J0456; J0696; J7050; J2919